=== PATIENT | male | born 1945 | race Caucasian/White ===

== ENCOUNTER → 2016-03-07 | Outpatient (CLI) | payer BC ==
[~2016-03-07] MED LIST: GABA-113 PO; GLC500 PO; HYDR12.55 PO; LISI40TA PO; SIMV40TA2 PO; SYMIN160 INH
--- NOTE | 2016-03-08 08:00 | PAP/PSG TECHNICIAN REPORT ---
[facility] Digital Marketing Lead Polysomnogram Report Study name: None Report date: 03/08/2016 Study date: 03/07/2016 Referring Physician: Yan Lopez Pulmonary Name: YAN SARMIENTO Interpreting Physician: Sukh Dent D.O. Date of : 1945 Digital Marketing Lead: Ashley Mcnair, PSGT. Sex: Male Age: 70 StudyType: PSG Weight: 180 lbs Height: 70 years, Height 5' 10" BMI: 25.82 Medications: HCTZ 5 MG, METFORMIN 500 MG, LISINOPRIL 40 MG, [id number], VENTOLIN HFA. Patient History 70R. OLD MALE IN ROOM 7 PRESENTS TO THE SLEEP LAB FOR A DIAGNOSTIC SLEEP STUDY. PT. STATES THAT HE WAKES OFTEN DURING THE NIGHT, HE ALSO USES THE RESTROOM 2-3 TIMES PER: NIGHT. HE STATES THAT HE SNORES AT TIMES. NAPS DURING THE DAY OFTEN. Parameters Monitored NPSG: E1-M2, E2-M1, Fp1-M2, Fp2-M1, F3-M2, F4-M2, F4-M1, C3-M2, C4-M2, C4-M1, O1-M2, O2-M2, O2-M1, T3-M2, T4-M1, P3-M2, P4-M1, CHIN1, CHIN2, HR, EKG, Legs, PFLOW, SNOR, FLOW, CFLOW, Tidal Volume, THOR, ABDO, SpO2, PLTH, CPRESS, ETCO2 Wave, ETCO2, pH Sleep Architecture Sleep Stages Time at Lights Off 10:15:14 PM STAGES Time (min.) TST (%) Time at Lights On 4:45:14 AM Wake 124.5 -- Total Recording Time (TRT) 391.00 min. N1 8.0 3 Total Sleep Period (TSP) 343.5 min. N2 167.0 63 Total Sleep Time (TST) 265.5min. N3 0.0 0 Awake Time 125.5 min. REM 90.5 34 Wake after Sleep Onset 101.0 min. Sleep Efficiency (SE) 68 % Sleep Onset Latency (JOHN) 23.5 min. Number of Stage 1 Shifts None Awakenings 6 Stage Changes 28 Number of REM periods 6 REM 90.5 34 REM Latency 52.0 min. NREM 175.0 66 Body Position Analysis Supine Right Left Side Prone Vertical Total Sleep Time (min.) 105.7 156.3 42.4 198.68 0.0 0.0 Total Sleep Time (%) 25% 59% 16% 75 0% N/A% Total Sleep Time REM (min.) 9.5 42.5 38.5 None 0.0 0.0 Total Sleep Time NREM (min.) 57.3 113.8 3.9 None 0.0 0.0 Intermittent Wake (min.) 38.9 13.1 72.5 None 0.0 0.0 Total Sleep Period (%) 20% None None None None None Arousals Myoclonus (PLM) * Events Count Index Events Count Index Spontaneous 27 6 Events Awake (PLMW) 4 1.9 Respiratory 2 0.5 Events Asleep w/ Arousal (PLMA) 6 1.4 PLM 6 1 Events Asleep w/o Arousal (PLMS) 160 36.2 Snoring 2 0 Total Asleep 166 37.5 Total 37 8 Total 170 26 Respiratory Analysis * CA OA MA CH H RERA Total Count 0 12 0 0 51 0 63 Index 0.0 2.7 0.0 0 11.5 0 14.2 Mean Duration 0.0 22.7 0.0 0.00 23.5 0.0 23.3 Longest Duration 0.0 46.1 0.0 0.00 0.0 0.0 55.8 Respiratory Event Summary Total Supine ~Supine Right Left Prone REM NREM Apneas Count 12 11 1 0 1 N/A 5 7 Index 2.7 10 0 0.0 1.4 N/A 3 2 Hypopneas (4% Desat) Count 51 38 13 10 3 N/A 8 43 Index 11.5 34.1 4 3.8 4.2 N/A 5.3 14.7 Apneas & All Hypopneas Count 63 49 14 10 4 N/A 13 50 Index 14.2 44 4 4 6 N/A 8.6 17.1 Respiratory Events (Dietary Cook+All Hyp+RERA) Count 63 49 14 10 4 N/A 13 50 Index 14.2 44 4 3.8 5.7 N/A 8.6 17.1 Respiratory Related Arousal Count 2 49 0 0 0 N/A 0 2 Index 0.5 2 0 0 0 N/A 0 1 Snoring Analysis Supine Right Left Prone REM NREM Total Snore duration 4.8 min Snores count 91 90 18 N/A 58 141 199 Snore mean duration 1.5 Sec Snores index 82 35 25 N/A 38.5 48.3 45.0 TST with snoring (%) 1.8% Desaturation Event Summary: Minimum %SpO2 Event Count Mean/Min/Max Duration(sec.) Desaturation Index % Time In Bed > 90 33 31.8 / 12.8 / 55.0 38.2 13.6 86 - 90 49 32.6 / 9.5 / 60.0 9.8 78.9 81 - 85 3 22.4 / 11.0 / 38.3 7.8 6.0 76 - 80 0 N/A 0.0 1.0 71 - 75 0 N/A 0.0 0.4 66 - 70 0 N/A 0.0 0.0 61 - 65 0 N/A 0.0 0.0 56 - 60 0 N/A 0.0 0.0 51 - 55 0 N/A 0.0 0.0 < 50 0 N/A 0.0 0.0 Total REM NREM Awake <50% 0.0 min. 0.0 min. 0.0 min. 0.0 min. 51 - 60% 0.0 min. 0.0 min. 0.0 min. 0.0 min. 61 - 70% 0.0 min. 0.0 min. 0.0 min. 0.0 min. 71 - 80% 5.5 min. 1.0 min. 4.5 min. 0.0 min. 81 - 90% 323.8 min. 74.7 min. 156.3 min. 92.7 min. 91 - 100% 51.9 min. 14.8 min. 14.1 min. 23.1 min. Average 88 89 88 89 Minimum SpO2 70 72 70 81 Desaturation Event Index 9.8 9.3 17.8 0.0 # Desat. Events below 89% 61 12 49 0 Time(%) with Saturation below 89% 52.3 10.7 30.2 11.4 Time(min.) with Saturation below 89% 199.5 40.9 115.0 43.6 Time (mins) REM (mins) NREM (mins) % of TST SpO2 Below 90% 64 13 N51 77.8 SpO2 Below 88% 32 0 0 33 Heart Rate Analysis Min (bpm) Max (bpm) Average (bpm) Awake 54 188 67 NREM 56 83 65 REM 57 92 66 Overall 56 92 65 Supplemental O2 Values Minimum O2 level: None Value Start Time End Time Digital Marketing Lead Comments PSG Study Mr. Sarmiento slept in the right, left, and supine positions. No cardiac arrhythmia or PLM's noted. No bruxism noted. Snoring was noted and scored as a 3 on a scale of 1 through 5. (0=no snoring, 5=snoring loud enough to be heard through a closed door or down the je[address] way) Mr. Sarmiento awoke to use the restroom zero times during the night. Mr. Sarmiento stated, I did sleep as well as I do when I am in my own bed. The final report will be interpreted and signed by a sleep physician. The completed physician report will then be placed in the patient medical record. Pt. was somewhat restless throughout the test.He did snore and display respiratory events, with low oxygen saturations. Pt. woke around 3 am and was awake tossing and turning when I went into the room to see if he needed anything he said that his lower back was hurting him. Test ended at 4:34 am. Therapy (cm H2O) 0 TIB (min.) 390.0 TST (min.) 265.5 Sleep Onset (min.) 23.5 REM Onset From Sleep (min.) 52.0 Sleep Efficiency % 68 Wakefulness (%) 32 Wakefulness (min.) 125.5 NREM 1 (%) 3 NREM 1 (min.) 8.0 NREM 2 (%) 63 NREM 2 (min.) 167.0 NREM 3 (%) 0 NREM 3 (min.) 0.0 REM (%) 34 REM (min.) 90.5 # Arousals 37 Arousal Index 8 # Snore 199 Snore Index 45.0 AHI 14.2 AHI Supine 44 AHI Non-Supine 4 NREM AHI 17.1 REM AHI 8.6 RDI 14.2 # Obstructive Apnea 12 # Central Apnea 0 # Mixed Apnea 0 # Hypopneas 51 RERAs 0 Total Respiratory Events 63 Time Below SpO2 89% (min.) 155.9 Mean NREM SpO2 (%) 88 Mean REM SpO2 (%) 89 Mean Sleep SpO2 (%) 88 Min NREM SpO2 (%) 70 Min REM SpO2 (%) 72 Position Supine (min.) 105.7 Position Non-supine (min.) 198.7 LM Index Sleep 37.5 LM Index NREM 41.5 LM Index REM 29.8 Mean Heart Rate (bpm) 65 Min Heart Rate (bpm) 56
--- NOTE | 2016-03-09 16:29 | POLYSOMNOGRAPH REPORT ---
DATE OF PROCEDURE: 03/07/2016. REFERRING PHYSICIAN: Dr. Ryan Lopez and Dr. Jonny Leigh CLINICAL DATA: The patient is a 70-year-old male with a BMI of 25.82. He is referred for an in-lab diagnostic sleep study. He has complaints of disturbed nocturnal sleep, snoring and excessive daytime somnolence. SLEEP ARCHITECTURE: The total sleep period was 343.5 minutes. Total sleep time was 265.5 minutes. The sleep latency was mildly prolonged at 23.5 minutes. Sleep efficiency was moderately decreased to 68%. Wake after sleep onset was increased to 101 minutes. REM latency was 52 minutes. Sleep consisted of stage N1 3%, stage N2 63%, stage N3 0%, stage REM 34%. AROUSAL DATA: The patient had a total of 37 arousals including 27 spontaneous arousals, 2 respiratory arousals, 6 PLM arousals and 2 snoring arousals. The arousal index was 8. PLM DATA: The patient had a total of 166 periodic limb movements for a PLM index of 37.5 per hour. There were only 6 PLM with arousals for an index of only 1.4. EKG: The underlying cardiac rhythm was normal sinus. There were rare PVCs. The cardiac rates ranged from 54 up to 92 beats per minute. RESPIRATORY DATA: The patient had a total of 63 respiratory events including 12 obstructive apneas and 51 hypopneas. The apnea hypopnea index was elevated at 14.2 events per hour. This would be in the mild to moderate range. OXIMETRY DATA: The patient did have severe hypoxia at times. The minimum saturation was 70%. There was a total of 199.5 minutes with saturations less than 89%. DOOR ASSEMBLER COMMENTS AND TREATMENT SUMMARY: The patient slept in the right, left, and supine positions. No bruxism was noted. Snoring was noted and scored as a 3 on a scale of 1 through 5. The patient was restless throughout the test. There was a fairly long episode of wake in the last one-third of the study. IMPRESSIONS: 1. Obstructive sleep apnea -- mild to moderate. 2. Periodic limb movement disorder. 3. Hypoxia. COMMENTS: The patient has sleep apnea which is in the mild to moderate range. He did have significant hypoxia throughout much of the night. The most severe hypoxia occurred when the patient was in the supine position. The patient has comorbidities including hypertension, diabetes and asthma. RECOMMENDATIONS: 1. It is advised that the patient be given a trial of nasal CPAP. This could best be done by having him return for an in-lab CPAP titration study. The alternative would be treatment with auto CPAP. 2. No treatment is necessary for the underlying limb movement disorder. The sleep disorder breathing should be treated first. There were few arousals associated with the leg movements. 3. The patient should be advised to avoid sleeping in the supine position. He clearly had worsening events and hypoxia when he was supine. 4. He should be advised of the appropriate principles of sleep hygiene including having a regular sleep-wake schedule and having approximately 7.5 hours of sleep per night.
== END | disposition home or self-care (01) ==
LOC: C.NEUR 21:00
PROVIDERS: ATTEND Internal Medicine Pulmonary Disease
DX: G47.33 Obstructive sleep apnea (adult) (pediatric) (principal)

== ENCOUNTER → 2016-03-15 | Outpatient (CLI) | payer BC ==
--- NOTE | 2016-03-16 05:27 | PAP/PSG TECHNICIAN REPORT ---
[facility] Ribbon Blockmaker Polysomnogram Report Study name: None Report date: 03/16/2016 Study date: 03/15/2016 Referring Physician: Yan Lopez Pulmonary Name: YAN SARMIENTO Interpreting Physician: Sukh Dent D.O. Date of : 1945 Ribbon Blockmaker: Terri Rob RPSMORENO. Sex: Male Age: 70 StudyType: PSG PAP Weight: 180 lbs Height: 70 years, Height 5' 10" Neck Circum: 16.5inches BMI: 25.82 Medications: HCTZ 5mg, Metformin 500mg, Lisinopril 40mg, Symbicort 160-45mcg/act, Ventolin HFA Patient History Study started on room air with 4cwp cpap in room #6. 70 yr old male here tonight for a new titration study. He had a diagnostic psg done here on 03/07/16 that had an AHI of 14.2. His neck circ=16.5inches. Parameters Monitored NPSG: E1-M2, E2-M1, Fp1-M2, Fp2-M1, F3-M2, F4-M2, F4-M1, C3-M2, C4-M2, C4-M1, O1-M2, O2-M2, O2-M1, T3-M2, T4-M1, P3-M2, P4-M1, CHIN1, CHIN2, HR, EKG, Legs, PFLOW, SNOR, FLOW, CFLOW, Tidal Volume, THOR, ABDO, SpO2, PLTH, CPRESS, ETCO2 Wave, ETCO2, pH Sleep Architecture Sleep Stages Time at Lights Off 10:09:33 PM STAGES Time (min.) TST (%) Time at Lights On 5:20:33 AM Wake 200.0 -- Total Recording Time (TRT) 431.00 min. N1 42.0 18 Total Sleep Period (TSP) 392.0 min. N2 148.5 64 Total Sleep Time (TST) 231.0min. N3 29.0 13 Awake Time 200.0 min. REM 11.5 5 Wake after Sleep Onset 198.0 min. Sleep Efficiency (SE) 54 % Sleep Onset Latency (JOHN) 2.0 min. Number of Stage 1 Shifts None Awakenings 40 Stage Changes 133 Number of REM periods 4 REM 11.5 5 REM Latency 61.5 min. NREM 219.5 95 Body Position Analysis Supine Right Left Side Prone Vertical Total Sleep Time (min.) 227.0 47.4 65.0 112.34 0.0 0.0 Total Sleep Time (%) 51% 21% 28% 49 0% N/A% Total Sleep Time REM (min.) 0.5 11.0 0.0 None 0.0 0.0 Total Sleep Time NREM (min.) 118.2 36.4 65.0 None 0.0 0.0 Intermittent Wake (min.) 108.4 21.1 70.5 None 0.0 0.0 Total Sleep Period (%) 57% None None None None None Arousals Myoclonus (PLM) * Events Count Index Events Count Index Spontaneous 11 3 Events Awake (PLMW) 186 55.8 Respiratory 27 10.1 Events Asleep w/ Arousal (PLMA) 10 2.6 PLM 8 3 Events Asleep w/o Arousal (PLMS) 34 8.8 Snoring 1 0 Total Asleep 44 11.4 Total 47 12 Total 230 32 Respiratory Analysis * CA OA MA CH H RERA Total Count 1 14 0 0 67 0 82 Index 0.3 3.6 0.0 0 17.4 0 21.3 Mean Duration 0.0 27.3 0.0 0.00 34.6 0.0 32.9 Longest Duration 0.0 69.0 0.0 0.00 0.0 0.0 92.1 Respiratory Event Summary Total Supine ~Supine Right Left Prone REM NREM Apneas Count 15 12 3 1 2 N/A 1 14 Index 3.9 6 2 1.3 1.8 N/A 5 4 Hypopneas (4% Desat) Count 67 48 19 16 3 N/A 4 63 Index 17.4 24.3 10 20.3 2.8 N/A 20.9 17.2 Apneas & All Hypopneas Count 82 60 22 17 5 N/A 5 77 Index 21.3 30 12 22 5 N/A 26.1 21.0 Respiratory Events (Conveyor Loader+All Hyp+RERA) Count 82 60 22 17 5 N/A 5 77 Index 21.3 30 12 21.5 4.6 N/A 26.1 21.0 Respiratory Related Arousal Count 27 60 6 2 4 N/A 1 38 Index 10.1 17 3 3 4 N/A 5 10 Snoring Analysis Supine Right Left Prone REM NREM Total Snore duration 3.4 min Snores count 108 53 5 N/A 17 149 166 Snore mean duration 1.2 Sec Snores index 55 67 5 N/A 88.7 40.7 43.1 TST with snoring (%) 1.5% Desaturation Event Summary: Minimum %SpO2 Event Count Mean/Min/Max Duration(sec.) Desaturation Index % Time In Bed > 90 111 34.9 / 10.0 / 60.0 19.8 84.6 86 - 90 13 21.8 / 0.0 / 42.8 13.7 14.4 81 - 85 1 7.3 / 7.3 / 7.3 17.0 0.9 76 - 80 0 N/A 0.0 0.1 71 - 75 0 N/A 0.0 0.0 66 - 70 0 N/A 0.0 0.0 61 - 65 0 N/A 0.0 0.0 56 - 60 0 N/A 0.0 0.0 51 - 55 0 N/A 0.0 0.0 < 50 0 N/A 0.0 0.0 Total REM NREM Awake <50% 0.0 min. 0.0 min. 0.0 min. 0.0 min. 51 - 60% 0.0 min. 0.0 min. 0.0 min. 0.0 min. 61 - 70% 0.0 min. 0.0 min. 0.0 min. 0.0 min. 71 - 80% 0.6 min. 0.5 min. 0.0 min. 0.1 min. 81 - 90% 60.6 min. 3.7 min. 38.2 min. 18.8 min. 91 - 100% 335.9 min. 7.3 min. 179.8 min. 148.8 min. Average 93 91 92 93 Minimum SpO2 71 78 81 71 Desaturation Event Index 15.9 15.7 23.2 8.7 # Desat. Events below 89% 50 1 40 9 Time(%) with Saturation below 89% 5.3 0.6 3.6 1.1 Time(min.) with Saturation below 89% 21.1 2.2 14.5 4.5 Time (mins) REM (mins) NREM (mins) % of TST SpO2 Below 90% 72 2 N70 11.7 SpO2 Below 88% 22 0 0 4 Heart Rate Analysis Min (bpm) Max (bpm) Average (bpm) Awake 30 167 70 NREM 57 81 65 REM 60 75 65 Overall 57 81 65 Supplemental O2 Values Minimum O2 level: None Value Start Time End Time Ribbon Blockmaker Comments Mr. Sarmeinto slept in the right, left and supine positions. No cardiac arrhythmia noted. Some leg movements noted. No bruxism noted. CPAP was initiated at +4 CMH2O and up-titrated to a level of +18EXW5M which did not eliminate all respiratory events. A small AirFit F20 full face mask by [employer] was used during titration (he tried three other full face masks that did not work for him). He awoke to use the restroom once during the night and to stretch his legs. He stated that he slept about the same as when at home. He was having pain in his back and his left leg and foot that woke him up and he could not get comfortable. He slept poorly but tolerated the treatment well. He did awaken early and ask to end the study because of right shoulder pain. The final report will be interpreted and signed by a sleep physician. The completed physician report will then be placed in the patient medical record. Therapy Event: Therapy (cm H20) 4 5 6 7 8 10 11 12 13 15 Total Time at Pressure (min.) 12.8 8.1 23.4 25.0 91.0 69.2 61.2 16.9 7.2 116.2 TST at Pressure (min.) 10.5 7.9 7.4 25.0 79.5 25.2 19.7 14.9 7.2 33.7 # Periods 1 1 1 1 1 1 1 1 1 1 Sleep Onset (min.) 2.0 0.2 0.0 0.0 0.0 0.0 0.0 0.0 0.0 0.0 REM Onset (min.) N/A N/A N/A 19.2 0.0 N/A N/A N/A 3.0 N/A Sleep Efficiency % 82 97 31 100 87 36 32 88 100 29 Wakefulness (%) 17.9 2.6 68.3 0.0 12.6 63.6 67.9 11.9 0.0 71.0 Wakefulness (min.) 2.3 0.2 16.0 0.0 11.5 44.0 41.5 2.0 0.0 82.5 NREM 1 (%) 43.0 12.4 22.6 2.8 5.3 14.0 9.8 9.0 20.5 5.2 NREM 1 (min.) 5.5 1.0 5.3 0.7 4.8 9.7 6.0 1.5 1.5 6.0 NREM 2 (%) 39.1 85.0 9.0 78.0 43.4 22.4 22.3 79.1 72.6 23.9 NREM 2 (min.) 5.0 6.9 2.1 19.5 39.5 15.5 13.7 13.3 5.3 27.7 NREM 3 (%) 0.0 0.0 0.0 0.0 31.9 0.0 0.0 0.0 0.0 0.0 NREM 3 (min.) 0.0 0.0 0.0 0.0 29.0 0.0 0.0 0.0 0.0 0.0 REM (%) 0.0 0.0 0.0 19.2 6.8 0.0 0.0 0.0 6.9 0.0 REM (min.) 0.0 0.0 0.0 4.8 6.2 0.0 0.0 0.0 0.5 0.0 # Arousals 3 5 4 1 8 14 7 2 1 2 Arousal Index 17.1 38.1 32.4 2.4 6.0 33.3 21.4 8.1 8.3 3.6 # Snore 29 13 0 44 15 18 9 31 1 6 Snore Index 165.7 99.0 0.0 105.7 11.3 42.8 27.5 125.2 8.3 10.7 AHI 40.0 53.3 64.7 28.8 6.8 33.3 15.3 36.3 33.2 12.4 AHI Supine 40.0 53.3 76.5 N/A 43.4 38.7 20.5 36.3 33.2 12.6 AHI Non-Supine N/A N/A 61.6 28.8 3.3 0.0 0.0 N/A N/A 0.0 NREM AHI 40.0 53.3 64.7 26.7 5.7 33.3 15.3 36.3 35.6 12.4 REM AHI N/A N/A N/A 37.6 19.3 N/A N/A N/A 0.0 N/A RDI 40.0 53.3 64.7 28.8 6.8 33.3 15.3 36.3 33.2 12.4 # Obstructive 0 0 2 1 3 3 1 2 2 0 # Central Ap 0 0 0 0 0 0 0 0 0 1 # Mixed 0 0 0 0 0 0 0 0 0 0 # Hypopneas 7 7 6 11 6 11 4 7 2 6 RERAS 0 0 0 0 0 0 0 0 0 0 Total Respiratory Events 7 7 8 12 9 14 5 9 4 7 Time Below SpO2 89.00% (min.) 1.7 2.2 0.0 3.5 0.7 2.6 3.0 2.8 0.0 0.0 Mean NREM SpO2 (%) 91 91 93 92 94 92 91 91 93 92 Mean REM SpO2 (%) N/A N/A N/A 90 92 N/A N/A N/A 93 N/A Mean Sleep SpO2 (%) 91 91 93 91 93 92 91 91 93 92 Min NREM SpO2 (%) 81 82 84 84 91 84 84 82 89 89 Min REM SpO2 (%) N/A N/A N/A 78 85 N/A N/A N/A 92 N/A Position Supine (min.) 10.5 7.9 1.6 0.0 6.9 21.7 14.7 14.9 7.2 33.3 Position Non-supine (min.) 0.0 0.0 5.8 25.0 72.6 3.5 5.0 0.0 0.0 0.4 LM Index Sleep 0.0 22.8 24.3 0.0 9.8 14.3 15.3 12.1 8.3 17.8 LM Index NREM 0.0 22.8 24.3 0.0 10.6 14.3 15.3 12.1 8.9 17.8 LM Index REM N/A N/A N/A 0.0 0.0 N/A N/A N/A 0.0 N/A Mean Heart Rate (bpm) 64 65 64 63 64 64 65 66 68 67 Min Heart Rate (bpm) 61 60 59 57 59 59 61 62 62 63
--- NOTE | 2016-03-17 08:17 | POLYSOMNOGRAPH REPORT ---
CLINICAL DATA: The patient is a 70-year-old male. His history is that of snoring, and disturbed nocturnal sleep, and excessive daytime somnolence. A diagnostic sleep study was done 03/07/2016 showing obstructive sleep apnea with an apnea hypopnea index of 14.2. He is referred back to the sleep disorder center for a trial of nasal CPAP. SLEEP ARCHITECTURE: Total sleep period was 392.0 minutes. Total sleep time was 231.0 minutes. Sleep efficiency was significantly reduced to 54%. Wake after sleep onset was elevated at 198.0 minutes. The sleep latency was short at 2.0 minutes periods. The REM latency was normal at 61.5 minutes. Sleep consisted of stage N1 18%, stage N2 64%, stage N3 13%, and REM sleep, 5%. AROUSAL DATA: The patient had a total of 47 arousals including 11 spontaneous arousals, 27 respiratory arousals, 8 PLM arousals, and 1 snoring arousal. The arousal index was 12. PERIODIC LIMB MOVEMENTS DATA: The patient had a total of 44 periodic limb movements of sleep for a PLM index of 11.4 events per hour. There were 10 limb movements with arousals for a PLM arousal index of 2.6. EKG: The underlying cardiac rhythm was normal sinus. The cardiac rates ranged from 57-81 beats per minute. There were very occasional PACs noted. RESPIRATORY DATA: The patient's respiratory events were treated with nasal CPAP. Treatment was started at 4 cm. It was titrated up to a maximum of 15 cm. For the entire night, he had a total of 15 apneas and 67 hypopneas. The apnea hypopnea index was elevated at 21.3 events per hour. At the final pressure of 15 cm, the patient had a total time of 116.2 minutes with a total sleep time of only 33.7. Thus, the sleep efficiency at the final pressure only 29%. At the final pressure, he had 1 central apnea and 6 hypopneas. The apnea hypopnea index was 12.4 at the final pressure. OXIMETRY DATA: The patient's oxygen saturations had a casey of 71%. This likely was artifactual as it occurred during wake. He had a total of 22 minutes with saturations below 88%. Most of this occurred during the early part of the night. GAS PROVER COMMENTS: The patient slept in the right, left, and supine positions. Some leg movements were noted. A small AirFit F20 full face mask by [employer] was used during the titration. He tried 3 other full face masks that did not work for him. He awoke to use the bathroom once during the night and to stretch his legs. He stated that he slept about same as when at home. He was having pain in his back and his left leg and foot that woke him up and he could not get comfortable. He also complained of right shoulder pain. IMPRESSION: Obstructive sleep apnea -- treated with nasal CPAP at 15 cm. COMMENTS: The patient had somewhat disturbed sleep, particularly in the final one-half of the night. He seemed to tolerate CPAP well. He persisted with some degree of sleep apnea. Mainly these were hypopneas. His sleep was disturbed by significant amounts of pain. At the final pressure of 15 cm, he had some residual events. Thus, it would be advised that his CPAP be set at a slightly higher pressure such as 16 cm in hopes of resolving the remaining nocturnal respiratory events. RECOMMENDATIONS: 1. It is suggested that the patient be started on nasal CPAP at 16 cm. 2. It is advised that he be ordered an AirFit F20 full face mask made by [employer]. 3. Humidity is advised in to the CPAP. 4. The patient should have a followup between day 31 and day 90 after receiving his CPAP. 5. It is suggested that he avoid sleeping in the supine position. MTDD
== END | disposition home or self-care (01) ==
LOC: C.NEUR 20:00
PROVIDERS: ATTEND Internal Medicine Pulmonary Disease
DX: G47.33 Obstructive sleep apnea (adult) (pediatric) (principal)

== ENCOUNTER → 2016-05-18 | Outpatient (CLI) | payer BC | END | disposition home or self-care (01) | LOC: C.RDSM 09:30 | PROVIDERS: ATTEND Orthopaedic Surgery Sports Medicine | DX: M79.672 Pain in left foot (principal) ==

== ENCOUNTER → 2016-07-28 | Day surgery (SDC) | payer BC ==
[2016-07-12 10:30] VITALS: Ht 177.8 cm; Wt 81.8 kg
[~2016-07-28] VITALS: Ht 177.8 cm; Wt 81.8 kg
[~2016-07-28] MED LIST changes: +IOPAMIDOL INJ 61% 15 ML VIAL ONE; +LIDOCAINE HCL 1% MPF 5 ML VIAL ONE; +SODIUM CHLORIDE 0.9% INJ 10 ML VIAL ONE
--- NOTE | 2016-07-28 13:04 | History & Physical Bridge - SC ---
H&P Re-Evaluation Bridge Note: I have examined the patient, reviewed the History & Physical and in the interval since the performance of the History & Physical I have noted the following changes of clinical significance: No changes noted
[2016-07-28 13:28] VITALS: TEMP 36.3
--- NOTE | 2016-07-28 13:34 | Discharge Instructions ---
Discharge Instructions Date of Service Jul 28, 2016. Visit Reason for Visit: Lumbar Radiculopathy Discharge Discharge Diagnosis / Problem: left leg pain Discharge Goals Goal(s): Decrease discomfort, Improve function Activity Recommendations Activity Limitations: resume your previous activity Anesthesia . Post Anesthesia Instructions: If you have had General Anesthesia or IV Sedation: * Do not drive today. * Resume driving when surgeon permits. * Do not make important decisions or sign legal documents today. * Call surgeon for: 1. Temperature elevations greater than 101 degrees F. 2. Uncontrollable pain. 3. Excessive bleeding. 4. Persistent nausea and vomiting. 5. Medication intolerance (nausea, vomiting or rash). * For nausea and vomiting use only clear liquids such as: tea, soda, bouillon until nausea subsides, then gradually increase diet as tolerated. * If you have any concerns or questions, call your surgeon's office. If physician is unavailable and it is an emergency, call 911 or go to the nearest emergency room. . Diet Recommendations Recommended Home Diet: resume previous diet Procedures Procedures Performed: Lumbar Epidural Steroid Injection Pending Studies Studies pending at discharge: no Medical Emergencies . Who to Call and When: Medical Emergencies: If at any time you feel your situation is an emergency, please call 911 immediately. . Non-Emergent Contact Non-Emergency issues call your: Specialist . . "Provider Documentation" section prepared by Michael Horn. .
[2016-07-28 13:40] VITALS: BP 159/85; PULSE 68; O2SAT 98
--- NOTE | 2016-07-28 14:08 | OPERATIVE REPORT ---
DATE OF OPERATION: 07/28/2016 PREOPERATIVE DIAGNOSIS: Left lower extremity radiculopathy secondary to L5-S1 foraminal stenosis. POSTOPERATIVE DIAGNOSIS: Same. PROCEDURE: Left paramedian L5-S1 intralaminar epidural steroid injection under fluoroscopic guidance. INDICATIONS: The patient is a 71-year-old white male who presents today with complaints of leg pain. EMG nerve conduction study was done to evaluate his complaints, which revealed radiculopathy down the left leg and not tarsal tunnel syndrome. He presents today for an epidural injection to provide him with relief as conservative measures have not helped. PHYSICAL EXAMINATION: GENERAL: Pleasant male seated comfortably in no apparent distress. MUSCULOSKELETAL: Lumbar paraspinal muscles were palpated and noted to be nontender. He had decreased sensation in the left sural, superficial peroneal and the deep peroneal nerves. No focal weakness. CONSENT: Verbal and written consent was obtained from the patient. Risks and benefits were reviewed. Risks include but are not limited to epidural abscess, epidural hematoma, allergic reaction, dural puncture. The patient wishes to proceed. PROCEDURE IN DETAIL: The patient was taken back to the special procedures room of the [facility] where he was maintained in a prone position. Backside was cleansed with Betadine x3 and a dry sterile dressing was applied. Fluoroscope was used to identify the L5-S1 intralaminar space and overlying skin on the left side was anesthetized with 4 mL of lidocaine 1% 25 gauge 1.5-inch needle. A 22-gauge 3-1/2 inch Tuohy needle was then placed and advanced fluoroscopically under lateral under lateral fluoroscopic view. Loss of resistance was noted at a depth of 6 cm. Isovue-300 contrast 0.5 mL was injected in, which showed it to be in the soft tissues. He then underwent additional advancement of the epidural needle with a true loss of resistance at a depth of just under 8.5 cm. Isovue-300 contrast 1 mL was injected in, which demonstrated epidural uptake pattern. He then underwent injection after negative aspiration of 40 mg of Depo-Medrol and 4 mL of preservative free sodium chloride. Injection was well tolerated and reproduced a familiar radicular sensation down the left leg which was transient. DISPOSITION: 1. The patient is taken out into the discharge recovery area where he will be discharged home once discharge criteria have been met. 2. Follow up in the [facility] office in 2-4 weeks. I attest to the content of the Intraoperative Record and any orders documented therein. Any exception s are noted below.
== END | disposition home or self-care (01) ==
LOC: X.SURG 12:01
PROVIDERS: ATTEND Physical Medicine & Rehabilitation
DX: M48.07 Spinal stenosis, lumbosacral region (principal)

== ENCOUNTER → 2016-11-12 | Outpatient (CLI) | payer BC ==
[~2016-11-12] MED LIST changes: +GADAVIST IV PRN; -IOPAMIDOL INJ 61% 15 ML VIAL ONE; -LIDOCAINE HCL 1% MPF 5 ML VIAL ONE; -SODIUM CHLORIDE 0.9% INJ 10 ML VIAL ONE
--- NOTE | 2016-11-12 12:21 | DIAGNOSTIC IMAGING REPORT ---
MRI OF THE LEFT FOREFOOT COMBO CLINICAL HISTORY: Tarsal tunnel syndrome. Pain and numbness in the toes. COMPARISON STUDY: Radiographs of the left foot dated 05/18/2016 TECHNIQUE: MRI of the left forefoot is performed utilizing various T1 and T2-weighted sequences in the axial, sagittal, and coronal planes. Contrast-enhanced sequences were acquired following the IV administration of 8.5 cc of Gadavist. The examination is degraded by motion artifact. FINDINGS: Normal marrow signal intensity is preserved throughout the visualized bony structures. There is no MRI evidence of fracture. Mild arthritic change is seen at the first metatarsophalangeal joint. There is no MRI evidence of Lisfranc injury. The regional musculature is normal in bulk and signal intensity. No ganglion cyst or enhancing mass lesion is identified. The visualized flexor and extensor tendons appear intact. IMPRESSION: 1. No bony abnormality is identified. 2. There is no evidence of a space-occupying lesion or enhancing mass. Dictated: 11/12/2016 12:07 PM Transcribed: 11/12/2016 12:21 PM [facility] Electronically signed by: Patricio Patel M.D. 11/12/2016 12:32 PM Dictated Date/Time: 11/12/2016 12:07 PM
== END | disposition home or self-care (01) ==
LOC: C.MRI 09:13
PROVIDERS: ATTEND Orthopaedic Surgery Sports Medicine
DX: G57.52 Tarsal tunnel syndrome, left lower limb (principal)

== ENCOUNTER → 2016-11-15 | Outpatient (CLI) | payer BC ==
--- NOTE | 2016-11-15 12:56 | DIAGNOSTIC IMAGING REPORT ---
MRI LEFT ANKLE COMBO CLINICAL HISTORY: Tarsal tunnel syndrome. COMPARISON STUDY: Radiographs of left foot dated 05/18/2016 TECHNIQUE: MRI of the left ankle is performed using various T1 and T2-weighted sequences in the axial, sagittal, coronal planes. Contrast enhanced images are acquired following the IV administration of 8.5 cc of Gadavist. FINDINGS: Normal marrow signal intensity is preserved throughout the visualized bony structures. There is no evidence of osteochondral defect in the talar dome. Normal fat is maintained within the sinus tarsi. The plantar fascia is normal as visualized. The anterior talofibular ligament appears intact. The Achilles tendon is intact as visualized. No joint effusion is seen. The anterior, posterior, and peroneal tendons appear intact. The deltoid ligament appears intact. No space-occupying lesion or enhancing mass is identified. No accessory musculature is seen posterior to the ankle. There is mild generalized atrophy of the regional musculature. No intramuscular edema is identified. IMPRESSION: 1. No space-occupying lesion or enhancing mass is identified. 2. No acute bony abnormality is seen. 3. The regional tendons appear intact. Electronically signed by: Patricio Patel M.D. 11/15/2016 12:55 PM Dictated Date/Time: 11/15/2016 12:45 PM
== END | disposition home or self-care (01) ==
LOC: C.MRI 10:38
PROVIDERS: ATTEND Orthopaedic Surgery Sports Medicine
DX: G57.52 Tarsal tunnel syndrome, left lower limb (principal)

== ENCOUNTER 2016-12-26 08:24 | Emergency (ER) | payer BC ==
[~2016-12-26] VITALS: Ht 177.8 cm; Wt 84.0 kg
[~2016-12-26 08:24] MED LIST changes: -GADAVIST IV PRN
[2016-12-26 08:29] VITALS: TEMP 36.6; Ht 177.8 cm; Wt 84.0 kg
[2016-12-26] MEDS ORDERED: GLC500 PO (08:53)
--- NOTE | 2016-12-26 09:11 | EMERGENCY ROOM VISIT NOTE ---
History Report prepared by Flores: River Cevallos Under the Supervision of: Dr. Tracee Hewitt D.O. First contact with patient: 08:36 Chief Complaint: CONSTIPATION Stated Complaint: NAUSEA,FEVERISH,PT HAD SURGERY ON TUESDAY Nursing Triage Summary: tarsal tunnel surgery at [facility] on tuesday. this AM patient c/o nausea. patient states his last BM was on tuesday. patient c/o feeling gassy, bloated and nauseated. patient staets he has been taking pain medication last pain medication was at 0400 today. patient states he has not taken any stool softners until this AM. patient took 1 colace this AM History of Present Illness The patient is a 71 year old male who presents to the Emergency Room with complaints of persistent constipation that started 2 days ago. He says that he had Tarsal tunnel surgery at [facility] 2 days ago, and is on OxyContin for that. The patient states that he was supposed to be on a stool softener after the surgery, but was not on it. He notes that he did take 1 Colace this morning. He says that he usually has a daily bowel movement, but has not had one for 2 days. The patient notes that he has had intermittent nausea, sweats and chills, and feelings of being feverish, but did not measure his temperature. He adds that he has had some low back pain, which sometimes occurs before needing to have a bowel movement. He denies any other pain other than his foot, including abdominal pain. He notes no history of kidney problems. Source of History: patient, family Onset: 2 days ago Position: other (global - constipation) Symptom Intensity: has not had bowel movement in 2 days Quality: other (on pain medication after surgery) Timing: other (persistent) Associated Symptoms: + chills, + diaphoresis, + nausea, + back pain (low), No abdominal pain Note: Associated symptoms: Denies any pain other than foot pain where had surgery. Review of Systems See HPI for pertinent positives & negatives. A total of 10 systems reviewed and were otherwise negative. Past Medical & Surgical Medical Problems: (1) Diabetes (2) HTN (hypertension) Family History Family history omitted secondary to patient's advanced age. Social History Smoking Status: Never Smoker Alcohol Use: none Marital Status: Occupation Status: retired Current/Historical Medications Scheduled Hydrochlorothiazide (Hydrochlorothiazide), 12.5 MG PO QAM Lisinopril (Zestril), 40 MG PO QAM Metformin HCl (Metformin HCl), 500 MG PO BIDM Simvastatin (Zocor), 40 MG PO QPM Scheduled PRN Budesonide/Formoterol Fumarate (Symbicort 160/4.5 Inhaler ), 2 PUFFS INH BID PRN for Shortness of Breath Allergies Coded Allergies: No Known Allergies (Unverified , 12/26/16) Physical Exam Vital Signs Date Time Temp Pulse Resp B/P (MAP) Pulse Ox O2 Delivery O2 Flow Rate FiO2 12/26/16 11:24 100 156/69 96 Room Air 12/26/16 10:45 99 18 143/73 99 Room Air 12/26/16 08:29 36.6 99 20 150/72 91 Room Air Physical Exam GENERAL: alert, well appearing, well nourished, no distress, non-toxic EYE EXAM: normal conjunctiva, PERRL and EOM's grossly intact OROPHARYNX: no exudate, no erythema, lips, buccal mucosa, and tongue normal and mucous membranes are moist NECK: supple, no nuchal rigidity, no adenopathy, non-tender LUNGS: Clear to auscultation. Normal chest wall mechanics HEART: no murmurs, S1 normal and S2 normal ABDOMEN: Mild tympany to percussion along right abdomen. Abdomen soft, normo- active bowel sounds, no masses, no rebound or guarding. BACK: Back is symmetrical on inspection and there is no deformity, no midline tenderness, no CVA tenderness. SKIN: no rashes and no bruising UPPER EXTREMITIES: upper extremities are grossly normal. LOWER EXTREMITIES: No pitting edema. Left leg and foot braced and wrapped. NEURO EXAM: Normal sensorium, cranial nerves II-XII grossly intact, normal speech, no gross weakness of arms, no gross weakness of legs. Medical Decision & Procedures ER Provider Diagnostic Interpretation: X-ray results have been interpreted by the radiologist and reviewed by me. ABDOMEN 2VIEW W/PA CHEST RTN CLINICAL HISTORY: constipation COMPARISON STUDY: 04/12/2012 FINDINGS: The erect chest reveals no free air. There is no focal pulmonary consolidation. Supine and decubitus views the abdomen reveal scattered stool throughout the colon. There is no pathologic bowel dilatation. There are no transition zones indicate bowel obstruction. IMPRESSION: 1. No evidence of bowel obstruction. No evidence of free air 3. Scattered stool throughout the colon most pronounced at the level of the hepatic flexure and right colon. Electronically signed by: Adrian Ramirez M.D. 12/26/2016 10:01 AM Dictated Date/Time: 12/26/2016 10:00 AM Medications Administered Medications (Trade) Dose Ordered Sig/Evan Route Start Time Stop Time Status Last Admin Dose Admin Oxycodone/ Acetaminophen (Percocet 5-325mg Tab) 1 tab NOW ONCE PO 12/26/16 09:30 12/26/16 09:31 DC 12/26/16 09:30 1 TAB ED Course 0906: The patient was evaluated in room A10. A complete history and physical exam was performed. 30: Ordered Percocet 5-325mg Tab 1 tab PO. 1014: I reevaluated the patient and he wants to try an enema. 1100: Upon reevaluation, the patient had a BM prior to nurse given enema and is feeling better. I discussed the findings and the treatment plan with the patient. He verbalizes agreement and understanding. He was discharged home. Discussed prevention of constipation. Medical Decision Differential diagnoses includes but is not limited to gastritis, peptic ulcer disease, GERD, gallbladder disease, pancreatitis, small bowel obstruction, acute coronary syndrome, pericarditis, ischemic bowel, irritable bowel disease, irritable bowel syndrome, appendicitis, diverticulitis, malignancy, hernia, urinary tract infection, torsion, perforation, trauma, infectious. Doubt SBO, perf, volvulus, ischemia colitis, vascular etiology, bacteremia/ sepsis, pathology - pt felt improved here after BM. Discussed bowel regimen while taking narcotics for pain. Discussed sx to watch/return for, he verbalized understanding and was agreeable with plan. Medication Reconcilliation Current Medication List: was personally reviewed by me Blood Pressure Screening Patient's blood pressure: Elevated blood pressure Blood pressure disposition: Elevated BP felt to be situational Impression Primary Impression: Constipation Scribe Attestation The scribe's documentation has been prepared under my direction and personally reviewed by me in its entirety. I confirm that the note above accurately reflects all work, treatment, procedures, and medical decision making performed by me. Departure Information Dispostion Home / Self-Care Referrals Jonny Leigh DO (PCP) Patient Instructions My [facility] Additional Instructions Please drink plenty of water daily. Please take a daily stool softener or use MiraLAX daily to help prevent any additional constipation while you're taking the pain medication for your foot surgery. If you develop abdominal pain or bloating, are unable to have a bowel movement, noticed blood with the bowel movement, develop fevers, nausea or vomiting, or you have any other new concerns , please return to the emergency room. Please continue your other regular medications as prescribed. Please continue your other postoperative instructions from your surgeon. Problem Qualifiers Primary Impression: Constipation Constipation type: drug induced constipation Qualified Codes: K59.03 - Drug induced constipation
[2016-12-26] MEDS ORDERED: OXYCODONE/ACETAMINOPHEN 5-325 TAB PO ONE (09:30)
--- NOTE | 2016-12-26 10:02 | DIAGNOSTIC IMAGING REPORT ---
ABDOMEN 2VIEW W/PA CHEST RTN CLINICAL HISTORY: constipation COMPARISON STUDY: 04/12/2012 FINDINGS: The erect chest reveals no free air. There is no focal pulmonary consolidation. Supine and decubitus views the abdomen reveal scattered stool throughout the colon. There is no pathologic bowel dilatation. There are no transition zones indicate bowel obstruction. IMPRESSION: 1. No evidence of bowel obstruction. No evidence of free air 3. Scattered stool throughout the colon most pronounced at the level of the hepatic flexure and right colon. Electronically signed by: Adrian Ramirez M.D. 12/26/2016 10:01 AM Dictated Date/Time: 12/26/2016 10:00 AM
[2016-12-26 11:24] VITALS: BP 156/69; PULSE 100; O2SAT 96
== END 2016-12-26 11:38 | disposition home or self-care (01) ==
LOC: C.EDB 08:26 → C.EDA 11:38
DX: K59.00 Constipation, unspecified (principal); R11.0 Nausea; Z98.890 Other specified postprocedural states; E11.9 Type 2 diabetes mellitus without complications; I10 Essential (primary) hypertension; Z79.84 Long term (current) use of oral hypoglycemic drugs

== ENCOUNTER 2019-09-25 10:59 | Inpatient (IN) ==
[2019-09-25] MEDS ORDERED: ONDANSETRON INJ 2 MG/ML 2 ML VIAL IV STA ×2 (11:18→13:37)
[2019-09-25] MEDS ORDERED: SODIUM CHLORIDE 0.9% 500 ML IV SCH (11:30)
[2019-09-25] MEDS: MoRPHine SULFATE 4 MG/ML 1 ML CARP\\VIAL IV PRN ×3 (11:34→13:14)
[2019-09-25 11:40] LABS: Basophils # (auto) 0.02 K/uL (0-0.2); Basophils % (auto) 0.2 %; Eosinophils # (auto) 0.07 K/uL (0-0.5); Eosinophils % (auto) 0.8 %; Immature Granulocytes # (auto) 0.01 K/uL (0.00-0.02); Immature Granulocytes % (auto) 0.1 %; Lymphocytes # (auto) 1.67 K/uL (1.2-3.4); Lymphocytes % (auto) 19.8 %; Mean Corpuscular Hgb Conc 33.3 g/dL (32-36); Mean Platelet Volume 8.7 fL (7.4-10.4); Monocytes # (auto) 0.75 K/uL (0.11-0.59); Monocytes % (auto) 8.9 %; Neutrophils # (auto) 5.91 K/uL (1.4-6.5); Neutrophils % (auto) 70.2 %; Platelet Count 275 K/uL (130-400); RDW Coefficient of Variation 13.1 % (11.5-14.5); RDW Standard Deviation 42.1 fL (36.4-46.3); Red Blood Count 4.83 M/uL (4.7-6.1); White Blood Count 8.43 K/uL (4.8-10.8)
--- NOTE | 2019-09-25 11:50 | Emergency Department Note ---
Impression & Plan Fracture of hip, Ankle sprain and strain ED Provider Note NAME: YAN PANTOJA AGE: 74 SEX: M : 1945 ARRIVES VIA: Walk-In INFORMANT: Patient, ED PROVIDER(S): Kirill Fitzpatrick DO CHIEF COMPLAINT: Left lower extremity pain HPI: The patient is a 74-year-old male who presented to the emergency department for an evaluation of left lower extremity pain. The patient had a fall from a standing position after he tripped over a piece of wood that he was cutting. The patient fell onto his left side. He has very significant pain in his left foot and ankle. He also has pain in his left hip. He does not remember specifically twisting the lower extremity but does remember falling directly on the left hip. The patient had very severe difficulty standing at that time. The patient denies having any head injury. He denies having any headache or neck pain. The patient states his pain is moderate to severe especially with any movement of his left lower extremity or trying to ambulate. He denies having any back pain or chest pain. The patient did not take any medication for pain prior to arrival. ROS: See above HPI for pertinent positives & negatives. A total of 10 systems re viewed and were otherwise negative. PAST MEDICAL HISTORY: See Below PAST SURGICAL HISTORY: See Below FAMILY HISTORY: See Below SOCIAL HISTORY: See Below HOME MEDICATIONS: See Below ALLERGIES: See Below VITALS: See Below PHYSICAL EXAMINATION: GENERAL: The patient is awake and alert. He is very anxious appearing and appears to be uncomfortable. EYES: The conjunctivae are clear. The pupils are round and reactive. EARS, NOSE, MOUTH AND THROAT: The nose is without any evidence of any deformity. NECK: The neck is nontender and supple. The cervical spine was clinically cleared in the emergency department. RESPIRATORY: Normal respiratory effort is noted there is no evidence of wheezing rhonchi or rales CARDIOVASCULAR: Regular rate and rhythm noted there no murmurs rubs or gallops normal S1 normal S2. GASTROINTESTINAL: The abdomen is soft. Abdomen is nontender. BACK: No midline tenderness or or step-off noted range of motion in flexion extension as well as rotation no signs of muscle spasm noted MUSCULOSKELETAL/EXTREMITIES: There is pain with range of motion testing of the left hip. There is mild shortening noted in the left lower extremity. There is tenderness over the distal aspect of the left femur. There is no tenderness with palpation of the left knee and range of motion appears intact. Very significant swelling is noted over the left calcaneus and the left ankle. There is no pain over the midfoot. Pulses were symmetric in both feet. SKIN: There is no obvious evidence of any rash. There are no petechiae, pallor or cyanosis noted. NEUROLOGIC: Patient is awake alert and oriented x3. MEDICAL DECISION MAKING: The patient is a 74-year-old male who presented to the emergency department for an evaluation of left hip pain. The patient had a fall prior to arrival landing on his left hip. On exam the patient did have shortening and pain with range of motion of left hip. Radiographic studies were obtained and did reveal a left hip fracture. He also had significant pain and swelling to his left foot and ankle. X-rays did not reveal any acute fracture. I discussed the patient's laboratory and radiographic studies with him. He was treated with pain medication in the emergency department and on subsequent reevaluation was feel ing much better. [facility] well as [facility] the [facility] group of his choice. They have agreed to evaluate the patient for further management and disposition. Triage Nursing notes reviewed. Prior medical records reviewed Vital Signs: reviewed and remarkable for elevated blood pressure. Differential diagnosis: Fracture, subluxation, dislocation, contusion, ligamentous injury, neurovascular, compartment syndrome, rhabdomyolysis, as well as other pathologies. ER treatment provided: See below Diagnostics interpreted by me: ECG: An EKG was obtained in the emergency department. My interpretation is normal sinus rhythm at 96 bpm. There is no ectopy. There is no acute ST segment abnormalities noted. This was compared to a tracing from March 25, 2018. No significant changes were noted. Cardiac Monitoring: An order was placed for continuous cardiac monitoring. The monitor shows a rate of 85 with sinus rhythm. Laboratory studies: As stated above and show below. Imaging studies: See below Consultation(s): 1300: I discussed this case with Dr. Horan who [facility]. He is agreed to evaluate the patient in the emergency department for further management and disposition. 1335: I discussed this case with Dr. Gurrola who is on-call for the patient's requested orthopedic group. They will evaluate the patient for further management and likely surgical intervention. Past Med/Surg History Medical History Chronic back pain Degenerative disc disease Diabetes TYPE 2, NIDDM Hyperlipidemia Hypertension Macular degeneration Osteoarthritis Peripheral neuropathy Sleep apnea CPAP Surgical History H/O foot surgery TARSAL TENDON REPAIR History of colonoscopy History of total knee replacement Right TKA 2011 Family History Other Family history non-contributory Social History Smoking Status: Never smoker Second Hand Exposure: Yes (DAD SMOKED); Hx Alcohol Use: Yes Alcohol type: beer Hx Substance Use: No Preferred Language: Romansh Communication Ability: Effective Seam Stay Stitcher Required: No Beliefs That Will Affect Care: None marital status: Current Living Situation: Spouse current occupational status: retired Other Information That Helps Us Care for You: No Feels Safe at Home: Yes Safety Concerns: Feels Safe At This Time Allergies Allergies Allergy/AdvReac Type Severity Reaction Status Date / Time No Known Allergies Allergy Verified 09/25/19 12:55 Home Meds Home Medications Medication Instructions Recorded Confirmed hydrochlorothiazide 12.5 mg PO QAM 03/25/18 09/25/19 lisinopril 40 mg PO QAM 03/25/18 09/25/19 metformin 500 mg PO BID 03/25/18 09/25/19 pregabalin 75 mg PO BID 03/25/18 09/25/19 simvastatin 40 mg PO QAM 03/25/18 09/25/19 Results & Data (ED) Vital Signs Vital Signs - 24 hr 09/25/19 11:07 09/25/19 11:30 09/25/19 11:36 Temperature 36.9 C Temperature Source Oral Pulse Rate 104 H 97 H 96 H Pulse Rate [Apical] Pulse Rate from SpO2 Sensor 97 H Pulse Rhythm Regular Pulse Strength Normal Respiratory Rate 20 20 20 Respiratory Effort / Characteristics Non-Labored Spontaneous Respiratory Depth Normal Respiratory Pattern Regular Blood Pressure 120/66 120/88 Blood Pressure [Right Arm] Blood Pressure Mean 84 106 Blood Pressure Mean [Right Arm] Blood Pressure Position Sitting Pulse Oximetry 95 94 94 Oxygen Delivery Method Room Air Room Air Sepsis Recent Fever Within 48 Hours No Sepsis New/Unexplained Change in Mental Status No Sepsis Action Taken by Nursing No Action Required 09/25/19 11:37 09/25/19 11:44 09/25/19 12:00 Temperature Temperature Source Pulse Rate 95 H 103 H Pulse Rate [Apical] 93 H Pulse Rate from SpO2 Sensor 96 H 102 H Pulse Rhythm Pulse Strength Respiratory Rate 20 20 24 Respiratory Effort / Characteristics Non-Labored Spontaneous Respiratory Depth Normal Respiratory Pattern Regular Blood Pressure 148/75 H Blood Pressure [Right Arm] 120/88 Blood Pressure Mean 97 Blood Pressure Mean [Right Arm] 98 Blood Pressure Position Pulse Oximetry 95 95 96 Oxygen Delivery Method Room Air Sepsis Recent Fever Within 48 Hours Sepsis New/Unexplained Change in Mental Status Sepsis Action Taken by Nursing 09/25/19 12:01 09/25/19 12:30 09/25/19 12:31 Temperature Temperature Source Pulse Rate 102 H 109 H 104 H Pulse Rate [Apical] Pulse Rate from SpO2 Sensor 101 H Pulse Rhythm Pulse Strength Respiratory Rate 20 23 22 Respiratory Effort / Characteristics Respiratory Depth Respiratory Pattern Blood Pressure 160/89 H Blood Pressure [Right Arm] Blood Pressure Mean 122 Blood Pressure Mean [Right Arm] Blood Pressure Position Pulse Oximetry 96 Oxygen Delivery Method Sepsis Recent Fever Within 48 Hours Sepsis New/Unexplained Change in Mental Status Sepsis Action Taken by Nursing 09/25/19 13:00 09/25/19 13:01 09/25/19 13:30 Temperature Temperature Source Pulse Rate 102 H 103 H 83 Pulse Rate [Apical] Pulse Rate from SpO2 Sensor 102 H 104 H 86 Pulse Rhythm Pulse Strength Respiratory Rate 20 16 20 Respiratory Effort / Characteristics Respiratory Depth Respiratory Pattern Blood Pressure 135/86 114/64 Blood Pressure [Right Arm] Blood Pressure Mean 103 70 Blood Pressure Mean [Right Arm] Blood Pressure Position Pulse Oximetry 94 95 94 Oxygen Delivery Method Sepsis Recent Fever Within 48 Hours Sepsis New/Unexplained Change in Mental Status Sepsis Action Taken by Nursing 09/25/19 13:31 Temperature Temperature Source Pulse Rate 84 Pulse Rate [Apical] Pulse Rate from SpO2 Sensor 84 Pulse Rhythm Pulse Strength Respiratory Rate 22 Respiratory Effort / Characteristics Respiratory Depth Respiratory Pattern Blood Pressure Blood Pressure [Right Arm] Blood Pressure Mean Blood Pressure Mean [Right Arm] Blood Pressure Position Pulse Oximetry 95 Oxygen Delivery Method Sepsis Recent Fever Within 48 Hours Sepsis New/Unexplained Change in Mental Status Sepsis Action Taken by [facility] Medications Current Medication List: was personally reviewed by me Laboratory Data Attestation: I reviewed the patient's lab results. Result diagrams: 09/26/19 05:43 09/26/19 05:43 Lab Results 09/25/19 09/25/19 09/25/19 Range/Units 11:20 11:20 11:20 WBC 8.43 (4.8-10.8) K/uL RBC 4.83 (4.7-6.1) M/uL Hgb 14.0 (14.0-18.0) g/dL Hct 42.0 (42-52) % MCV 87.0 (80-100) fL MCH 29.0 (25-34) pg MCHC 33.3 (32-36) g/dL RDW Std Deviation 42.1 (36.4-46.3) fL RDW Coeff of Vipin 13.1 (11.5-14.5) % Plt Count 275 (130-400) K/uL MPV 8.7 (7.4-10.4) fL Immature Gran % (Auto) 0.1 % Neut % (Auto) 70.2 % Lymph % (Auto) 19.8 % [place] % (Auto) 8.9 % Eos % (Auto) 0.8 % Baso % (Auto) 0.2 % Neut # (Auto) 5.91 (1.4-6.5) K/uL Lymph # (Auto) 1.67 (1.2-3.4) K/uL [place] # (Auto) 0.75 H (0.11-0.59) K/uL Eos # (Auto) 0.07 (0-0.5) K/uL Baso # (Auto) 0.02 (0-0.2) K/uL Immature Gran # (Auto) 0.01 (0.00-0.02) K/uL PT 10.2 (9.0-12.0) Seconds INR 1.0 (0.9-1.1) APTT 24.6 (21.0-31.0) Seconds PTT Ratio 0.9 Sodium 136 (136-145) mmol/L Potassium 3.8 (3.5-5.1) mmol/L Chloride 102 (98-107) mmol/L Carbon Dioxide 28 (21-32) mmol/L Anion Gap 6.0 (3-11) BUN 15 (7-18) mg/dl Creatinine 0.95 (0.6-1.4) mg/dl Est Cr Clr Drug Dosing 70.4 ml/min Est GFR ( Amer) 91.0 Est GFR (Non-Af Amer) 78.5 BUN/Creatinine Ratio 15.9 (10-20) Glucose 109 H (70-99) mg/dl Calcium 8.5 (8.5-10.1) mg/dl Total Bilirubin 0.3 (0.2-1) mg/dl AST 11 L (15-37) U/L ALT 20 (12-78) U/L Alkaline Phosphatase 76 (45-117) U/L Troponin I < 0.015 (0-0.045) ng/ml Total Protein 7.2 (6.4-8.2) gm/dl Albumin 3.5 (3.4-5.0) gm/dl Globulin 3.7 (2.5-4.0) gm/dl Albumin/Globulin Ratio 0.9 (0.9-2) Lipase 86 (73-393) U/L Hepatitis C Ab Screen (Neg) 09/25/19 Range/Units 11:20 WBC (4.8-10.8) K/uL RBC (4.7-6.1) M/uL Hgb (14.0-18.0) g/dL Hct (42-52) % MCV (80-100) fL MCH (25-34) pg MCHC (32-36) g/dL RDW Std Deviation (36.4-46.3) fL RDW Coeff of Vipin (11.5-14.5) % Plt Count (130-400) K/uL MPV (7.4-10.4) fL Immature Gran % (Auto) % Neut % (Auto) % Lymph % (Auto) % [place] % (Auto) % Eos % (Auto) % Baso % (Auto) % Neut # (Auto) (1.4-6.5) K/uL Lymph # (Auto) (1.2-3.4) K/uL [place] # (Auto) (0.11-0.59) K/uL Eos # (Auto) (0-0.5) K/uL Baso # (Auto) (0-0.2) K/uL Immature Gran # (Auto) (0.00-0.02) K/uL PT (9.0-12.0) Seconds INR (0.9-1.1) APTT (21.0-31.0) Seconds PTT Ratio Sodium (136-145) mmol/L Potassium (3.5-5.1) mmol/L Chloride (98-107) mmol/L Carbon Dioxide (21-32) mmol/L Anion Gap (3-11) BUN (7-18) mg/dl Creatinine (0.6-1.4) mg/dl Est Cr Clr Drug Dosing ml/min Est GFR ( Amer) Est GFR (Non-Af Amer) BUN/Creatinine Ratio (10-20) Glucose (70-99) mg/dl Calcium (8.5-10.1) mg/dl Total Bilirubin (0.2-1) mg/dl AST (15-37) U/L ALT (12-78) U/L Alkaline Phosphatase (45-117) U/L Troponin I (0-0.045) ng/ml Total Protein (6.4-8.2) gm/dl Albumin (3.4-5.0) gm/dl Globulin (2.5-4.0) gm/dl Albumin/Globulin Ratio (0.9-2) Lipase (73-393) U/L Hepatitis C Ab Screen Neg (Neg) Administered Medications Hydromorphone HCl (Hydromorphone Inj 0.5 Mg/0.5 Ml Syr) 0.25 - 0.5 mg IV Q1H PRN PRN Reason: Moderate/Severe Pain Stop: 10/09/19 15:14 Last Admin: 09/26/19 05:08 Dose: 0.5 mg Documented by: [id number] Admin: 09/26/19 03:09 Dose: 0.5 mg Documented by: [id number] Admin: 09/26/19 01:37 Dose: 0.5 mg Documented by: [id number] Admin: 09/26/19 00:33 Dose: 0.5 mg Documented by: [id number] Admin: 09/25/19 22:07 Dose: 0.5 mg Documented by: [id number] Admin: 09/25/19 20:52 Dose: 0.5 mg Documented by: [id number] Admin: 09/25/19 17:15 Dose: 0.5 mg Documented by: [id number] Admin: 09/25/19 15:48 Dose: 0.5 mg Documented by: [id number] Lactated Ringer's (Lr) 1,000 mls @ 125 mls/hr IV .Q8H TONIE Stop: 10/25/19 15:14 Last Admin: 09/25/19 23:40 Dose: 125 mls/hr Documented by: [id number] Infusion: 09/25/19 23:40 Dose: 125 mls/hr Documented by: [id number] Admin: 09/25/19 15:40 Dose: 125 mls/hr Documented by: [id number] Insulin Aspart (Insulin Aspart 100 Units/Ml 3 Ml Pen) 0 units SC Q6 TONIE Stop: 10/26/19 05:59 Last Admin: 09/26/19 06:05 Dose: Not Given Documented by: [id number] Cosigned by: [id number] Pregabalin (Pregabalin 75 Mg Cap) 75 mg PO BID TONIE Stop: 10/25/19 20:59 Last Admin: 09/25/19 20:52 Dose: 75 mg Documented by: [id number] Senna/Docusate Sodium (Docusate Sodium/Senna 50/8.6mg Tab) 2 tab PO HS [facility] Stop: 10/25/19 20:59 Last Admin: 09/25/19 20:48 Dose: 2 tab Documented by: [id number] Discontinued Medications Fentanyl Citrate (Fentanyl Citrate 100 Mcg/2 Ml Vial) 50 mcg IV NOW STA Stop: 09/25/19 13:22 Last Admin: 09/25/19 14:19 Dose: Not Given Documented by: [id number] Hydromorphone HCl (Hydromorphone Inj 1 Mg/Ml Syringe) 1 mg IV NOW STA Stop: 09/25/19 17:28 Last Admin: 09/25/19 19:00 Dose: 1 mg Documented by: [id number] Sodium Chloride (Nss) 500 mls @ 999 mls/hr IV .Q31M TONIE Stop: 09/25/19 12:00 Last Infusion: 09/25/19 12:01 Dose: 0 mls/hr Documented by: [id number] Admin: 09/25/19 11:29 Dose: 999 mls/hr Documented by: [id number] Lorazepam (Ativan) 1 mg in 2 mls @ 2 mls/min IV NOW STA Stop: 09/25/19 17:28 Last Admin: 09/25/19 19:00 Dose: 2 mls/min Documented by: [id number] Insulin Aspart (Insulin Aspart 100 Units/Ml 3 Ml Pen) 0 units SC ACHS TONIE Stop: 10/25/19 16:29 Last Admin: 09/25/19 22:27 Dose: Not Given Documented by: [id number] Admin: 09/25/19 18:01 Dose: Not Given Documented by: [id number] Cosigned by: [id number] Morphine Sulfate (Morphine Sulfate 4 Mg/Ml 1 Ml Carp\Vial) 4 mg IV Q15M PRN PRN Reason: Pain Stop: 10/09/19 11:17 Last Admin: 09/25/19 13:14 Dose: 4 mg Documented by: [id number] Admin: 09/25/19 12:04 Dose: 4 mg Documented by: [id number] Admin: 09/25/19 11:34 Dose: 4 mg Documented by: [id number] Ondansetron HCl (Ondansetron Inj 2 Mg/Ml 2 Ml Vial) 4 mg IV NOW STA Stop: 09/25/19 11:19 Last Admin: 09/25/19 11:30 Dose: 4 mg Documented by: [id number] Ondansetron HCl (Ondansetron Inj 2 Mg/Ml 2 Ml Vial) 4 mg IV NOW STA Stop: 09/25/19 13:38 Last Admin: 09/25/19 14:17 Dose: Not Given Documented by: [id number] Imaging Data Radiologist's Impression: XR chest 1V portable HISTORY: 74 years-old Male fall acute chest trauma status post fall COMPARISON: Chest radiograph 03/25/2018 TECHNIQUE: Portable supine AP view of the chest FINDINGS: Cardiac silhouette is enlarged, unchanged. No pneumothorax, pleural effusion, airspace consolidation or overt pulmonary edema. Degenerative changes of the shoulders and spine. IMPRESSION: Cardiomegaly without acute process. ACT 112: Negative or not required by law. The above report was generated using voice recognition software. It may contain grammatical, syntax or spelling errors. Electronically signed by: Otto Jung M.D. 09/25/2019 12:47 PM Dictated: 09/25/19 1245 Transcribed: 09/25/19 1245 XR hip LT 2V w pelvis CLINICAL HISTORY: Fall. COMPARISON: None FINDINGS: Sacroiliac joints and symphysis pubis are intact. No acute fracture within the pelvis or right hip is noted. Note is made of a angulated mildly displaced acute left femoral neck fracture. IMPRESSION: Angulated mildly displaced acute left femoral neck fracture. ACT 112: Negative or not required by law. Electronically signed by: Pipo Sandoval M.D. 09/25/2019 12:49 PM Dictated: 09/25/19 1247 Transcribed: 09/25/19 1247 XR foot LT 2V, XR ankle LT 2V, XR calcaneus LT min 2V HISTORY: 74 years-old Male fall . Acute left foot and ankle pain COMPARISON: None TECHNIQUE: 2 views of the left foot with 3 views of the left ankle and 2 views of the left calcaneus FINDINGS: FOOT: Moderate multifocal osteoarthritis. Limited exam secondary to positioning. No acute fracture, dislocation or opaque foreign body. CALCANEUS: Moderate sized plantar enthesophyte. No acute fracture, dislocation or opaque foreign body. Soft tissue swelling of the ankle. ANKLE: Circumferential soft tissue swelling of the ankle. Limited exam secondary to positioning. There is at least mild tibiotalar osteoarthritis. No acute fracture or dislocation. IMPRESSION: Limited exam secondary to positioning. Soft tissue swelling without acute fracture or dislocation. ACT 112: Negative or not required by law. The above report was generated using voice recognition software. It may contain grammatical, syntax or spelling errors. Electronically signed by: Otto Jung M.D. 09/25/2019 12:49 PM Dictated: 09/25/19 1247 Transcribed: 09/25/191246 Blood Pressure Blood Pressure Findings: Elevated blood pressure Blood Pressure Disposition: further management by hospitalist Discharge Plan Visit Data Chief Complaint: Leg Injury/Pain Stated Complaint: BROKEN LEG ED Provider: Kirill Fitzpatrick Discharge Problem: Fracture of hip, Ankle sprain and strain Patient Disposition: Admitted As Inpatient Condition: Good Discharge Instructions Interventions: ED Discharge Assessment Last Done: 09/25/19 14:24 Discharge Problem: Fracture of hip Qualifiers: Encounter type: initial encounter Fracture type: closed Laterality: left Qual ified Code(s): S72.002A - Fracture of unspecified part of neck of left femur, initial encounter for closed fracture
[2019-09-25 11:51] LABS: Partial Thromboplastin Ratio 0.9; Partial Thromboplastin Time 24.6 Seconds (21.0-31.0); Prothrombin Time 10.2 Seconds (9.0-12.0)
[2019-09-25 11:58] LABS: Alanine Aminotransferase 20 U/L (12-78); Albumin Level 3.5 gm/dl (3.4-5.0); Aspartate Aminotransferase 11 U/L (15-37); BUN Creatinine Ratio 15.9 (10-20); Blood Urea Nitrogen 15 mg/dl (7-18); Calcium 8.5 mg/dl (8.5-10.1); Carbon Dioxide 28 mmol/L (21-32); Chloride 102 mmol/L (98-107); Creatinine Clr Calc Pharmacy 70.4 ml/min; Est GFR (Non-African American) 78.5; Glucose 109 mg/dl (70-99); Lipase 86 U/L (73-393); Potassium 3.8 mmol/L (3.5-5.1); Sodium 136 mmol/L (136-145)
[2019-09-25 12:03] LABS: Albumin Globulin Ratio 0.9 (0.9-2); Alkaline Phosphatase 76 U/L (45-117); Bilirubin,Total 0.3 mg/dl (0.2-1); Globulin 3.7 gm/dl (2.5-4.0); Total Protein 7.2 gm/dl (6.4-8.2); Troponin I < 0.015 ng/ml (0-0.045)
--- NOTE | 2019-09-25 12:48 | XRay Report ---
XR chest 1V portable HISTORY: 74 years-old Male fall acute chest trauma status post fall COMPARISON: Chest radiograph 03/25/2018 TECHNIQUE: Portable supine AP view of the chest FINDINGS: Cardiac silhouette is enlarged, unchanged. No pneumothorax, pleural effusion, airspace consolidation or overt pulmonary edema. Degenerative changes of the shoulders and spine. IMPRESSION: Cardiomegaly without acute process. ACT 112: Negative or not required by law. The above report was generated using voice recognition software. It may contain grammatical, syntax o r spelling errors. Electronically signed by: Otto Jung M.D. 09/25/2019 12:47 PM
--- NOTE | 2019-09-25 12:50 | XRay Report ---
XR hip LT 2V w pelvis CLINICAL HISTORY: Fall. COMPARISON: None FINDINGS: Sacroiliac joints and symphysis pubis are intact. No acute fracture within the pelvis or r ight hip is noted. Note is made of a angulated mildly displaced acute left femoral neck fracture. IMPRESSION: Angulated mildly displaced acute left femoral neck fracture. ACT 112: Negative or not required by law. Electronically signed by: Pipo Sandoval M.D. 09/25/2019 12:49 PM
--- NOTE | 2019-09-25 12:51 | XRay Report ---
XR foot LT 2V, XR ankle LT 2V, XR calcaneus LT min 2V HISTORY: 74 years-old Male fall . Acute left foot and ankle pain COMPARISON: None TECHNIQUE: 2 views of the left foot with 3 views of the left ankle and 2 views of the left calcaneus FINDINGS: FOOT: Moderate multifocal osteoarthritis. Limited exam secondary to positioning. No acute fracture, disloca tion or opaque foreign body. CALCANEUS: Moderate sized plantar enthesophyte. No acute fracture, dislocation or opaque foreign body. Soft tiss ue swelling of the ankle. ANKLE: Circumferential soft tissue swelling of the ankle. Limited exam secondary to positioning. There is at least mild tibiotalar osteoarthritis. No acute fracture or dislocation. IMPRESSION: Limited exam secondary to positioning. Soft tissue swelling without acute fracture or dis location. ACT 112: Negative or not required by law. The above report was generated using voice recognition software. It may contain grammatical, syntax o r spelling errors. Electronically signed by: Otto Jung M.D. 09/25/2019 12:49 PM
--- NOTE | 2019-09-25 12:51 | XRay Report ---
XR femur LT 2V routine CLINICAL HISTORY: fall COMPARISON: None FINDINGS: Note is made of an angulated mildly displaced acute left femoral neck fracture. No distal left femoral fracture is noted. Alignment of the left knee is anatomic. Pelvic calcifications favor p hleboliths. No acute fractures are identified within visualized portions of the left hemipelvis. IMPRESSION: Acute angulated mildly displaced left femoral neck fracture. ACT 112: Negative or not required by law. Electronically signed by: Pipo Sandoval M.D. 09/25/2019 12:49 PM
--- NOTE | 2019-09-25 13:00 | History & Physical Report ---
Date of Service September 25, 2019 Assessment & Plan (1) Fracture of hip: Closed femoral neck mildly displaced fracture. Medically optimized for surgery at this time. Last ate and drank as per HPI. Revised cardiac risk score 0; 3.9% 30-day risk of , [place], cardiac arrest. Will defer traction given significant amounts of pain in his left foot. Dilaudid 0.5-1mg IV q1h PRN for pain, ondansetron 4 mg IV. Consult orthopedics for operative management - n.p.o. with LR IV @ 125 ml/hr until reviewed by orthopedics. Vitamin D level in a.m. recommend follow-up DEXA scan with his PCP in approximately 4-6 weeks. (2) Left ankle pain: Unclear what is previous surgery entailed but suspect ?tarsal tunnel syndrome (per description from patient) versus tarsal tendon repair (as noted in EHR problem list). Unable to fully clinically assess due to significant hip pain limiting his ankle movements on admission. Will defer to orthopedics regarding further imaging of his ankle. (3) Diabetes: Unknown HbA1c but he reports under control. Type II diabetic diet once he is about to eat and drink HbA1c with a.m. labs Novolog correction factor only with BSG ACHS. If requiring significant amounts of insulin will add carb coverage and basal insulin. (4) HTN (hypertension): Hold hydrochlorothiazide given current blood pressure. Continue lisinopril 20 mg p.o. every morning. (5) Sleep apnea: CPAP HS @15 cm H2O (6) Peripheral neuropathy: Appears to be more a nerve entrapment from description rather than peripheral neuropathy. Continue pregabalin 75 mg p.o. twice daily (7) DVT prophylaxis: SCDs ordered for unaffected leg Chemical prophylaxis deferred to orthopedics History of Present Illness Chief Complaint: Left hip pain following a fall Primary Care Provider: Jonny Leigh Ryan Sarmiento is a 74 year old male with hypertension, diabetes, left ankle neuropathic pain, hyperlipidemia who presents to the ER with left hip pain after falling. He reports feeling well and his normal self this morning. He was cutting wood outside and tripped over a log falling from a standing position onto grass. He fell onto his left side. Significant pain in his left hip, foot, ankle since falling. He denies any dizziness, chest pain, shortness of breath prior to falling. Pain initially 10/10, currently 7/10 after x3 morphine 4 mg IV given in the ER. Feels the pain is over his left hip and radiates down his leg to his feet. Constant aching. 10 years ago got nerve pain in his left foot. 2 surgeries to left foot for ?nerve entrapment, . Last ate 6:30am-7am. [place] and coffee. Took all his medication this morning. Allergies Allergy/AdvReac Type Severity Reaction Status Date / Time No Known Allergies Allergy Verified 09/25/19 12:55 Home Medications Home Medications Medication Instructions Recorded Confirmed Type hydrochlorothiazide 12.5 mg PO QAM 03/25/18 09/25/19 History lisinopril 40 mg PO QAM 03/25/18 09/25/19 History metformin 500 mg PO BID 03/25/18 09/25/19 History pregabalin 75 mg PO BID 03/25/18 09/25/19 History simvastatin 40 mg PO QAM 03/25/18 09/25/19 History Past Med/Surg History Medical History Chronic back pain Degenerative disc disease Diabetes TYPE 2, NIDDM Hyperlipidemia Hypertension Macular degeneration Osteoarthritis Peripheral neuropathy Sleep apnea CPAP Surgical History H/O foot surgery TARSAL TENDON REPAIR History of colonoscopy History of total knee replacement Right TKA 2011 Family History Other Family history non-contributory Social History Smoking Status: Never smoker Second Hand Exposure: Yes (DAD SMOKED); Hx Alcohol Use: Yes Alcohol type: beer Hx Substance Use: No Preferred Language: Albanian Communication Ability: Effective Plant Operations Coordinator Required: No Beliefs That Will Affect Care: None marital status: Current Living Situation: Spouse current occupational status: retired Other Information That Helps Us Care for You: No Feels Safe at Home: Yes Safety Concerns: Feels Safe At This Time Review of Systems Review of Systems: All systems reviewed & are unremarkable except as noted in HPI & below Physical Exam Constitutional: well developed and well nourished; no acute distress Eyes: PERRL, conjunctivae normal, anicteric sclerae ENMT: external ear and nose normal, oropharynx normal Neck: trachea midline, no thyromegaly Respiratory: normal respiratory effort, lungs clear to auscultation Cardiovascular: RRR, no murmur, no edema Gastrointestinal (Abdomen): normal bowel sounds, soft, nontender, no hepatosplenomegaly Musculoskeletal: Externally rotated and shortened left leg and significant amount of left lateral hip and groin pain. Neurovascularly intact distally. Swelling and pain on left ankle mainly posterior to medial malleolus on palpation. Unable to fully assess movements due to a causing pain in his head. Inversion of his left possibly reduced. Skin: no rashes, warm and dry Neurologic: moves all extremities (Unable to fully access left leg due to pain from hip fracture) and awake Psychiatric: A+Ox3, euthymic affect Results & Data Results & Data ([facility]) Vital Signs (Past 12 Hours) Vital Signs Temp Pulse Pulse Resp BP BP Pulse Ox 09/25/19 12:31 104 H 22 09/25/19 12:30 109 H 23 160/89 H 09/25/19 12:01 102 H 20 96 09/25/19 12:00 103 H 24 148/75 H 96 09/25/19 11:44 95 H 20 95 09/25/19 11:37 93 H 20 120/88 95 09/25/19 11:36 96 H 20 94 09/25/19 11:30 97 H 20 120/88 94 09/25/19 11:07 36.9 C 104 H 20 120/66 95 Diagnostic Findings XR foot LT 2V, XR ankle LT 2V, XR calcaneus LT min 2V IMPRESSION: Limited exam secondary to positioning. Soft tissue swelling without acute fracture or dislocation. XR femur LT 2V routine IMPRESSION: Acute angulated mildly displaced left femoral neck fracture. XR hip LT 2V w pelvis IMPRESSION: Angulated mildly displaced acute left femoral neck fracture. XR chest 1V portable IMPRESSION: Cardiomegaly without acute process. ECG Indication: other (Preop) Rate (beats per minute): 96 Rhythm: normal sinus Findings: + other (RSR pattern in V1) and + nonspecific-ST abn Comparison ECG Date: from (March 25, 2018) Change: no significant change Code Status & VTE Plan Code Status Full VTE Prophylaxis Plan VTE Prophylaxis will be ordered: Yes PG Care Time/CCT Total # of Minutes Spent Total Time Spent with Patient: Total time spent is greater than 50% in coordination of care (as documented) at patient's floor/unit and/or counseling patient: Coding Level of Care Code 54727 Initial Inpt Care Lvl 2 Diagnoses Fracture of hip S72.002A Encounter type: initial encounter Fracture type: closed Laterality: left Left ankle pain M25.572 Diabetes E11.8 Diabetes mellitus complication status: with unspecified complications Diabetes mellitus halfway insulin use: without long term care social worker use Diabetes mellitus type: type 2 HTN (hypertension) I10 Hypertension type: unspecified Sleep apnea G47.30 Peripheral neuropathy G62.9 DVT prophylaxis Z29.9 (1) Fracture of hip Encounter type: initial encounter Fracture type: closed Laterality: left Qualified Code(s): S72.002A - Fracture of unspecified part of neck of left femur, initial encounter for closed fracture (2) Diabetes Diabetes mellitus complication status: with unspecified complications Diabetes mellitus halfway insulin use: without halfway use Diabetes mellitus type: type 2 Qualified Code(s): E11.8 - Type 2 diabetes mellitus with unspecified complications (3) HTN (hypertension) Hypertension type: unspecified Qualified Code(s): I10 - Essential (primary) hypertension
--- NOTE | 2019-09-25 13:11 | Electrocardiogram Report ---
Test Reason : Blood Pressure : / mmHG Vent. Rate : 096 BPM Atrial Rate : 096 BPM P-R Int : 128 ms QRS Dur : 096 ms QT Int : 368 ms P-R-T Axes : 112 014 060 degrees QTc Int : 464 ms Poor data quality, interpretation may be adversely affected Normal sinus rhythm RSR' or QR pattern in V1 suggests right ventricular conduction delay Nonspecific ST and T wave abnormality Abnormal ECG When compared with ECG of 25-MAR-2018 06:00, No significant change was found Confirmed by Kirill Taylor ([id number]) on 09/25/2019 1:11:10 PM Referred By: Confirmed By:Kirill Taylor
[2019-09-25] MEDS ORDERED: fentaNYL citrate 100 MCG/2 ML VIAL IV STA (13:21)
[2019-09-25] MEDS ORDERED: ONDANSETRON INJ 2 MG/ML 2 ML VIAL IV PRN (15:15)
[2019-09-25] MEDS ORDERED: MAGNESIUM HYDROXIDE SUSP 30 ML UDC PO PRN (15:15)
[2019-09-25] MEDS ORDERED: ACETAMINOPHEN 325 MG TAB PO PRN (15:15)
[2019-09-25] MEDS ORDERED: NALOXONE HCL 0.4 MG/1 ML VIAL/CARP IV PRN (15:15)
[2019-09-25] MEDS ORDERED: PROMETHAZINE HCL 12.5 MG in SODIUM CHLORIDE 0.9% 50 ML IV PRN (15:15)
[2019-09-25] MEDS ORDERED: bisacodyL 10 MG SUPP PR PRN (15:15)
[2019-09-25] MEDS: LACTATED RINGER'S 1,000 ML IV SCH ×2 (15:40→23:40)
[2019-09-25] MEDS: HYDROmorphone INJ 0.5 MG/0.5 ML SYR IV PRN ×4 (15:48→22:07)
[2019-09-25] MEDS ORDERED: GLUCOSE 40% GEL 15 GM TUBE PO PRN (16:09)
[2019-09-25] MEDS ORDERED: GLUCAGON FOR INJ 1 MG VIAL SQ PRN (16:09)
[2019-09-25] MEDS ORDERED: CARBOHYDRATES FOR HYPOGLYCEMIA PO PRN (16:09)
[2019-09-25] MEDS ORDERED: DEXTROSE 50% 50 ML SYRINGE IV PRN (16:09)
[2019-09-25] MEDS ORDERED: GLUCOSE 10 TABS/TUBE PO PRN (16:09)
[2019-09-25] MEDS ORDERED: LORazepam 1 MG/2 ML VIAL IV STA (17:27)
[2019-09-25] MEDS ORDERED: HYDROmorphone INJ 1 MG/ML SYRINGE IV STA (17:27)
--- NOTE | 2019-09-25 17:54 | Anesthesiology Consultation ---
Date of Service September 25, 2019 Assessment & Plan Chart Review Chart Review: Acceptable Risk for Surgery and Patient NOT seen in Pre Admission Testing Consults Requested none ASA ASA4 History Surgery Operation Date: 09/26/19 12:30 Proposed Procedures p Left Total Hip Arthroplasty - Sourav Bocanegra MD Height/Weight Height: 5 ft 10 in Weight: 87.3 kg Allergies Allergy/AdvReac Type Severity Reaction Status Date / Time No Known Allergies Allergy Verified 09/25/19 12:55 Medications Home Medications Medication Instructions Recorded Confirmed Last Taken hydrochlorothiazide 12.5 mg PO QAM 03/25/18 09/25/19 09/25/19 lisinopril 40 mg PO QAM 03/25/18 09/25/19 09/25/19 metformin 500 mg PO BID 03/25/18 09/25/19 09/25/19 pregabalin 75 mg PO BID 03/25/18 09/25/19 09/25/19 simvastatin 40 mg PO QAM 03/25/18 09/25/19 09/25/19 Active Medications Generic Name Dose Route Start Last Admin Trade Name Freq PRN Reason Stop Dose Admin Hydromorphone HCl 0.25 - 0.5 mg 09/25/19 15:15 09/25/19 17:15 Hydromorphone Inj 0.5 Mg/0.5 Ml Syr IV 10/09/19 15:14 0.5 mg Q1H PRN Administration Moderate/Severe Pain Lactated Ringer's 1,000 mls @ 125 mls/hr 09/25/19 15:15 09/25/19 15:40 Lr IV 10/25/19 15:14 125 mls/hr .Q8H TONIE Administration Past Medical History Medical History Chronic back pain Degenerative disc disease Diabetes TYPE 2, NIDDM Hyperlipidemia Hypertension Macular degeneration Osteoarthritis Peripheral neuropathy Sleep apnea CPAP Exercise / Class Metabolic Activity III < 4 Walking/Shop/Light housework Past Family History Family History Other Family history non-contributory Past Surgical History Surgical History H/O foot surgery TARSAL TENDON REPAIR History of colonoscopy History of total knee replacement Right TKA 2011 Past Anesthesia History No Hx of Anesthesia Complications and No Family Hx of Anesthesia Complications History of PONV No Hx of PONV and No Hx of Motion Sickness Social History Smoking Status: Never smoker Hx Alcohol Use: Yes Alcohol type: beer alcohol intake frequency: a few times a week Hx Substance Use: No substance use type: does not use Physical Exam Vital Signs Last Vital Signs Temp 36.9 C 09/25/19 15:16 Pulse 95 H 09/25/19 15:16 Resp 20 09/25/19 15:16 BP 172/81 H 09/25/19 15:16 Pulse Ox 95 09/25/19 15:16 Testing Laboratory Results 09/25/19 11:20 09/25/19 11:20 PT 10.2 Seconds (9.0-12.0) 09/25/19 11:20 INR 1.0 (0.9-1.1) 09/25/19 11:20 APTT 24.6 Seconds (21.0-31.0) 09/25/19 11:20 Blood Type A Positive 09/25/19 14:51 Antibody Screen NEGATIVE 09/25/19 14:51 09/25/19 17:24 POC Glucose 132 H Electrocardiogram Date: 09/25/19 Findings: + NSR @ (at 96;RSR pattern,) and + NSST changes Chest X-Ray Date: 09/25/19 Findings: + NAD and + cardiomegaly
[2019-09-25] MEDS: INSULIN ASPART 100 UNITS/ML 3 ML PEN SC SCH ×2 (18:01→22:27)
--- NOTE | 2019-09-25 20:35 | Consultation Report ---
DATE OF CONSULTATION: 09/25/2019 ORTHOPEDIC CONSULTATION CHIEF COMPLAINT: Left hip pain. HISTORY OF PRESENT ILLNESS: The patient is a 74-year-old gentleman who is well known to me from having performed a right knee replacement on him about 8 years ago. He has a history of hypertension, diabetes, elevated cholesterol, and neuropathy. He sustained a fall earlier today when he was cutting wood. He tripped over a log and landed on his left hip and side. He had the acute onset of left hip pain. He was brought to the Emergency Room where x-rays revealed a displaced femoral neck fracture. We were consulted for evaluation. He denies any other injuries. He has a history of chronic left foot pain and 2 previous surgeries. No preexisting hip pain. Denies any chest pain or shortness of breath. No head injury, no loss of consciousness. PAST MEDICAL HISTORY: Significant for, 1. Diabetes. 2. Hypertension. 3. Unspecified neuropathy. 4. Elevated cholesterol. 5. Chronic left foot and ankle pain. REVIEW OF SYSTEMS: Remainder of the review of systems is per the H and P provided by the medicine service. OBJECTIVE: VITAL SIGNS: Temperature is 36.9. Vital signs stable. GENERAL: Shows a pleasant, middle-aged male, looks to be in quite good health. MUSCULOSKELETAL: General musculoskeletal exam reveals painless range of motion of his cervical, thoracic and lumbar spine. He has got full and painless range of motion of both upper extremities and the right lower extremity. Examination of the left lower extremity reveals the leg to be shortened and externally rotated. He appears quite uncomfortable just in the resting position. He has pain with any type of hip motion. He can flex and extend his toes appropriately. He does have some slight chronic deformity to his foot, but no swelling or acute signs of trauma. No knee effusion. X-RAYS: X-rays of the left hip revealed displaced femoral neck fracture. Minimal underlying arthritis. X-rays of the left foot reveal no obvious acute abnormalities. He has got a chronic calcification of his plantar fascia. Mild degenerative changes. ASSESSMENT: A 74-year-old male with a history of hypertension, diabetes, elevated cholesterol, and right knee replacement in the past with a displaced femoral neck fracture from a fall. He is quite active and reasonably healthy. PLAN: We discussed treatment options. Concerning his age and activity level, I think he is best served with a total hip replacement. Alternatives would be a bipolar hip, but I think with his activity level, I think he will do better with a full hip replacement. After an extensive discussion, we are going to proceed with a left total hip replacement. He has been medically evaluated and optimized. We will keep him n.p.o. after midnight. We will begin DVT prophylaxis including TEDs and SCDs. We will place him in Lopez's traction for comfort. We will plan on doing this tomorrow. Informed consent was obtained.
[2019-09-25] MEDS: DOCUSATE SODIUM/SENNA 50/8.6MG TAB PO SCH (20:48)
[2019-09-25] MEDS: PREGABALIN 75 MG CAP PO SCH (20:52)
[2019-09-26] MEDS: HYDROmorphone INJ 0.5 MG/0.5 ML SYR IV PRN ×11 (00:33→19:06)
[2019-09-26] MEDS ORDERED: Nursing to Pharmacy Communication SCH (01:00)
[2019-09-26] MEDS: INSULIN ASPART 100 UNITS/ML 3 ML PEN SC SCH ×3 (06:05→18:28)
[2019-09-26 06:18] LABS: Hematocrit (blood only) 38.9 % (42-52); Hemoglobin 12.9 g/dL (14.0-18.0); Mean Corpuscular Hemoglobin 28.9 pg (25-34); Mean Corpuscular Hgb Conc 33.2 g/dL (32-36); Mean Platelet Volume 8.7 fL (7.4-10.4); Platelet Count 237 K/uL (130-400); RDW Coefficient of Variation 13.3 % (11.5-14.5); RDW Standard Deviation 42.6 fL (36.4-46.3); Red Blood Count 4.47 M/uL (4.7-6.1); White Blood Count 8.69 K/uL (4.8-10.8)
[2019-09-26 06:44] LABS: BUN Creatinine Ratio 21.8 (10-20); Calcium 7.6 mg/dl (8.5-10.1); Creatinine Clr Calc Pharmacy 90.4 ml/min; Est GFR (African American) 105.3; Est GFR (Non-African American) 90.9; Potassium 3.6 mmol/L (3.5-5.1)
[2019-09-26] MEDS: lisinopriL 40 MG TAB PO SCH (07:47)
[2019-09-26] MEDS: SIMVASTATIN 40 MG TAB PO SCH (07:47)
[2019-09-26] MEDS: PREGABALIN 75 MG CAP PO SCH ×2 (07:49→22:15)
[2019-09-26] MEDS: LACTATED RINGER'S 1,000 ML IV SCH ×2 (07:50→17:18)
[2019-09-26 10:11] LABS: Estimated Average Glucose 117 mg/dl; Hemoglobin A1C 5.7 % (4.5-5.6)
--- NOTE | 2019-09-26 14:21 | History & Physical Bridge Note ---
Date of Service September 26, 2019 History & Physical Bridge Note I have examined the patient, reviewed the History & Physical and in the interval since the performance of the History & Physical I have noted the following changes of clinical significance: no changes noted
--- NOTE | 2019-09-26 16:40 | Progress Notes ---
DATE: 09/26/2019 SUBJECTIVE: 74-year-old gentleman admitted with a displaced femoral neck fracture. We are just waiting for an open OR room. No interval change in symptoms. He is pretty miserable in pain. OBJECTIVE: VITAL SIGNS: Temperature 36.3. Vital signs are stable. He is hypertensive, likely related to pain. GENERAL: Shows a pleasant elderly male. He is lying in bed. Pretty uncomfortable. EXTREMITIES: Examination of the left leg reveals it to be slightly shortened and externally rotated. Thigh is soft and supple. He is neurologically intact. LABORATORY DATA: Hemoglobin is 12.9. Hematocrit 38.9. Electrolytes are stable. ASSESSMENT: 74-year-old gentleman postoperative admitted with a left displaced femoral neck fracture. PLAN: We talked about treatment options. We are going to proceed with total hip replacement considering his activity level. We are just waiting for an OR room. The risks and benefits have been explained.
[2019-09-26] MEDS ORDERED: BUPIVACAINE 0.5 % 5 MG/1 ML PF 10ML VIAL ONE (19:49)
[2019-09-26] MEDS ORDERED: MIDAZOLAM HCL 1 MG/ML 2ML VIAL ONE (19:57)
[2019-09-26] MEDS ORDERED: PROPOFOL IV EMULSION 10 MG/ML 20 ML VIAL IV ONE (19:57)
[2019-09-26] MEDS ORDERED: BUPIVACAINE 0.5 % 5 MG/1 ML MPF 30ML VIAL ONE (20:14)
[2019-09-26] MEDS ORDERED: EPINEPHrine INJ 1 MG/ML AMP ONE (20:14)
[2019-09-26] MEDS ORDERED: BACITRACIN INJ 50,000 UNIT VIAL ONE (20:14)
[2019-09-26] MEDS ORDERED: ONDANSETRON INJ 2 MG/ML 2 ML VIAL IV PRN ×2 (20:26→23:47)
[2019-09-26] MEDS ORDERED: fentaNYL citrate 100 MCG/2 ML VIAL IV PRN (20:26)
[2019-09-26] MEDS ORDERED: PROMETHAZINE HCL 12.5 MG in SODIUM CHLORIDE 0.9% 50 ML IV PRN (20:26)
[2019-09-26] MEDS ORDERED: HYDROmorphone INJ 2 MG/ML SYR/VIAL IV PRN (20:26)
[2019-09-26] MEDS ORDERED: ePHEDrine sulfate 50 MG/ML AMP IV PRN (20:26)
[2019-09-26] MEDS ORDERED: ATROPINE SULFATE 0.1 MG/ML 10ML SYR IV PRN (20:26)
[2019-09-26] MEDS ORDERED: fentaNYL citrate 100 MCG/2 ML VIAL ONE (20:34)
[2019-09-26] MEDS ORDERED: ROCURONIUM BROMIDE 10 MG/ML 5 ML VIAL IV ONE (21:12)
[2019-09-26] MEDS ORDERED: HYDROmorphone INJ 2 MG/ML SYR/VIAL ONE (21:13)
--- NOTE | 2019-09-26 21:14 | Hospitalist Progress Note ---
Date of Service September 26, 2019 Assessment & Plan (1) Fracture of hip: Closed femoral neck mildly displaced fracture. Medically optimized for surgery at this time. Last ate and drank as per HPI. Revised cardiac risk score 0; 3.9% 30-day risk of , [place], cardiac arrest. Will defer traction given significant amounts of pain in his left foot. Patient is scheduled for surgery later today. Will continue to monitor. Dilaudid 0.5-1mg IV q1h PRN for pain, ondansetron 4 mg IV. Consult orthopedics for operative management - n.p.o. with LR IV @ 125 ml/hr until reviewed by orthopedics. Vitamin D level in a.m. recommend follow-up DEXA scan with his PCP in approximately 4-6 weeks. (2) Left ankle pain: Unclear what is previous surgery entailed but suspect ?tarsal tunnel syndrome (per description from patient) versus tarsal tendon repair (as noted in EHR problem list). Unable to fully clinically assess due to significant hip pain limiting his ankle movements on admission. Patient scheduled for surgical repair.. (3) Diabetes: Unknown HbA1c but he reports under control. Type II diabetic diet once he is about to eat and drink HbA1c with a.m. labs Novolog correction factor only with BSG ACHS. If requiring significant amounts of insulin will add carb coverage and basal insulin. (4) HTN (hypertension): Hold hydrochlorothiazide given current blood pressure. Continue lisinopril 20 mg p.o. every morning. (5) Sleep apnea: CPAP HS @15 cm H2O (6) Peripheral neuropathy: Appears to be more a nerve entrapment from description rather than peripheral neuropathy. Continue pregabalin 75 mg p.o. twice daily (7) DVT prophylaxis: SCDs ordered for unaffected leg Chemical prophylaxis deferred to orthopedics Admission and Anticipated Discharge Date Admission Date: September 25, 2019 Subjective Patient reports he continues to have pain. He is interested in the surgery. Review of Systems Review of Systems: All systems reviewed & are unremarkable except as noted in HPI & below Physical Exam Constitutional: WD/WN, vitals as above well developed Eyes: PERRL, conjunctivae normal, anicteric sclerae ENMT: external ear and nose normal, oropharynx normal Neck: trachea midline, no thyromegaly Respiratory: normal respiratory effort, lungs clear to auscultation Cardiovascular: RRR, no murmur, no edema Gastrointestinal (Abdomen): normal bowel sounds, soft, nontender, no hepatosplenomegaly Musculoskeletal: Head/Neck/Chest: + head abnormal to inspection Neurologic: PERRL, EOMI, accommodation nl, no face palsy, no dysarthria Psychiatric: A+Ox3, euthymic affect Results & Data Results & Data ([facility]) Vital Signs (Past 12 Hours) Vital Signs Temp Pulse Resp BP Pulse Ox 09/26/19 16:00 36.3 C L 93 H 23 189/85 H 91 09/26/19 09:22 168/82 H PG Care Time/CCT Total # of Minutes Spent Total Time Spent with Patient: Total time spent is greater than 50% in coordination of care (as documented) at patient's floor/unit and/or counseling patient: Coding Level of Care Code 49739 Subseq Hosp Care Lvl 3 Diagnoses Fracture of hip S72.002A Encounter type: initial encounter Fracture type: closed Laterality: left Left ankle pain M25.572 Diabetes E11.8 Diabetes mellitus complication status: with unspecified complications Diabetes mellitus termite inspector insulin use: without fpc use Diabetes mellitus type: type 2 HTN (hypertension) I10 Hypertension type: unspecified Sleep apnea G47.30 Peripheral neuropathy G62.9 DVT prophylaxis Z29.9 Time Spent (min) 35 (1) Fracture of hip Encounter type: initial encounter Fracture type: closed Laterality: left Qualified Code(s): S72.002A - Fracture of unspecified part of neck of left femur, initial encounter for closed fracture (2) Diabetes Diabetes mellitus complication status: with unspecified complications Diabetes mellitus termite inspector insulin use: without fpc use Diabetes mellitus type: type 2 Qualified Code(s): E11.8 - Type 2 diabetes mellitus with unspecified complications (3) HTN (hypertension) Hypertension type: unspecified Qualified Code(s): I10 - Essential (primary) hypertension
[2019-09-26] MEDS ORDERED: PHENYLEPHRINE 100MCG/ML 5ML SYR ONE (21:19)
[2019-09-26] MEDS ORDERED: CEFAZOLIN 250 MG/ML 1 GM VIAL ONE (21:19)
[2019-09-26] MEDS ORDERED: ePHEDrine sulfate 50 MG/ML SYR ONE (21:19)
[2019-09-26] MEDS ORDERED: CEFAZOLIN 2000MG 2,000 MG/15 ML SYR IV ONE (21:31)
[2019-09-26] MEDS ORDERED: NEOSTIGMINE METHYLSULFATE 5 MG/5 ML SYR ONE (21:50)
[2019-09-26] MEDS ORDERED: GLYCOPYRROLATE 0.2 MG/ML VIAL ONE (21:50)
[2019-09-26] MEDS: DOCUSATE SODIUM/SENNA 50/8.6MG TAB PO SCH (22:15)
--- NOTE | 2019-09-26 22:54 | Operative Report ---
Post Operative Report Pre & Post Diagnosis Operation Date: 09/26/19 12:30 Pre-Op Diagnosis: Left displaced femoral neck hip fracture Post-Op Diagnosis: Left displaced femoral neck hip fracture I identified the patient and participated in the time-out.: Yes Procedure Operation Date: 09/26/19 12:30 Actual Procedures p Left Total Hip Arthroplasty(Left) - Sourav Bocanegra MD Surgeon Sourav Bocanegra MD Lighter Lilibeth, PAC Estimated Blood Loss 400 Findings Consistent with Post-Op Diagnosis Operative findings revealed comminuted femoral neck fracture was again displacement and hemorrhage and disruption of the capsule posteriorly. Fairly minimal arthritic change. Fluids 1500 cc. Specimens Left femoral head sent for pathology. Drains None. Anesthesia Type General Complications none Disposition Accompanied Patient To Recovery: Yes Disposition: Recovery Room Indications Patient is a 74-year-old very active gentleman who sustained a fall yesterday. He was chopping wood when he stumbled over a longer-term plan on his left hip. He had acute onset of pain. He he was unable to ambulate. Brought to emergency room where x-rays show displaced femoral neck fracture. He was medically admitted and optimized. Patient is very active independent and we elected proceed with total hip arthroplasty due to the nature of the fracture and his age and activity level. Description of Procedure Operative implants consist of: 1. Biomet G7 size 54 mm acetabular shell. 2. 6.5 cancellus acetabular screws x2. 3. [place] hole orthopedic technician. 4. Highly cross-linked polyethylene liner with a 54 mm outer diameter and 36 mm inner diameter. 5. Fe [place] size 14 KLA femoral stem. 5. +8.5/36 mm ceramic articular ball. Patient was taken to the operating room identified and placed on the operating table supine position. All contractors were properly padded. An attempt was made a spinal anesthetic which was unsuccessful. A general anesthetic was implemented. Patient did receive 2 g of IV Ancef. Patient was then placed in the right lateral decubitus position. Axillary roll was placed. A Stulberg hip positioner was used for positioning. Left hip and leg were then prepped and draped in usual sterile fashion. A posterior lateral posterior left hip was then performed a curvilinear incision centered over the greater trochanter. Sharp dissection got through subcutaneous tissue down to level the IT band gluteal fascia. The IT band gluteal fascia then incised longitudinally in line with skin incision. The underlying greater truck bursa was excised. There was a lot of hemorrhage in the posterior aspect of his hip and was difficult to identify the piriformis and external rotators. Therefore the piriformis and external rotators and the hip joint capsule posteriorly were then taken down as a single layer taking great care to protect the sciatic nerve at all times. Hip was internally rotated. Femoral neck osteotomy cut was made just at the base of the fracture but below the fracture site. The femoral neck was removed. The femoral head was removed and sent for pathology. The femur was retracted anteriorly. Attention drawn the acetabulum. The acetabular labrum was excised. The pulmonary fat was excised. Sequential reaming the acetabular was then performed given the size 45 and progressing up to 53. A 54 mm Biomet G7 acetabular shell was then placed in about 40 degrees lateral opening and 20 degrees of anteversion. It was fixed with two 6.5 cancellus acetabular screws. Trial liner was placed. Attention drawn the femur. The proximal femur was entered with a cookie-cutter followed by canal finder. I broached begin the size 8 and progressing up to 14. Got excellent fit of 14. I did not want only 1 a press the issue as far as maximum fit due to concern of his fracture previously and propagation of an undetected fracture line. We had excellent fit. There was stable. We trialed the hip. The soft tissue was still lax I did use a +8.5 head. We had excellent stability in full extension external rotation flexion and flexion to 9 degrees internal rotation over [address] these implants. I felt leg lengths were equal even though soft tissue tension was a little lax. All trial implants were removed. An apex hole eliminator was placed. Highly cross-linked polyethylene liner was placed. A Eddy size 14 KLA femoral stem was impacted in position. +8.5/36 mm ceramic articular ball was placed. Hip was located once again found to be stable. Attention drawn toward closing. The wound was irrigated copious pulsatile lavage solution. I did inject locally with 60 cc of half percent Marcaine with epinephrine. The posterior capsule and external rotators were repaired as a single layer through drill holes in the posterior trochanter with #2 Tycron suture. The IT band gluteal fascia were then closed in 1 PDS suture running fashion with subcutaneous tissue then closed with 2 layers of the deep layer #1 Vicryl suture and subcutaneous tissues with 2-0 Dexon suture in a buried interrupted fashion. Skin was closed with skin olga. Leg was then cleaned dried a sterile dressing composed Xeroform, 4 x 4's, sterile ABD pad and foam tape was applied. Patient transferred to the recovery room in stable condition. The patient tolerated the procedure well and there were no complications. James Mcelroy, my physician's human services assistant, was present for the entire procedure. His assistance was essential to proper positioning, prepping and draping, surgical exposure, performing the technical aspects of the operation, placing the implants, closure of the wound, and placement of a sterile dressing. I attest to the content of the Intraoperative Record and any orders documented therein. Any exceptions are noted below.
--- NOTE | 2019-09-26 23:04 | Anesthesiology Progress Note ---
Date of Service September 26, 2019 Anesthesia Post Procedure Vital Signs Vital Signs: Temp Pulse Pulse Resp BP Pulse Ox Pulse Ox 09/26/19 22:55 98 H 16 165/84 H 96 09/26/19 22:45 97 H 18 163/76 H 100 09/26/19 22:35 36.6 C 101 H 16 162/77 H 98 09/26/19 16:00 36.3 C L 93 H 23 189/85 H 91 09/26/19 09:22 168/82 H 09/26/19 07:25 36.9 C 88 18 184/85 H 93 96 09/26/19 00:35 94 09/25/19 23:10 36.8 C 74 16 144/79 H 94 Pain Intensity Left Leg: Pain Intensity: 8 Transfer of Care Handoff Completed per policy Notes Mental Status: alert / awake / arousable and participated in evaluation Patient Amnestic to Procedure: Yes Nausea / Vomiting: adequately controlled Pain: adequately controlled Airway Patency, RR, SpO2: stable & adequate BP & HR: stable & adequate Hydration State: stable & adequate Anesthetic Complications: no major complications apparent and Pt Satisfied with anesthetic care
[2019-09-26] MEDS ORDERED: HYDROmorphone INJ 0.5 MG/0.5 ML SYR IV PRN (23:47)
[2019-09-26] MEDS ORDERED: OXYCODONE HCL IR 5 MG TAB (IMMEDIATE RELEASE) PO PRN (23:47)
[2019-09-26] MEDS ORDERED: MAGNESIUM HYDROXIDE SUSP 30 ML UDC PO PRN (23:47)
[2019-09-26] MEDS ORDERED: NALOXONE HCL 0.4 MG/1 ML VIAL/CARP IV PRN (23:47)
[2019-09-26] MEDS ORDERED: TAMSULOSIN HCL 0.4 MG CAP PO PRN (23:47)
[2019-09-26] MEDS ORDERED: METOCLOPRAMIDE HCL INJ 5 MG/ML 2 ML VIAL IV PRN (23:47)
[2019-09-26] MEDS ORDERED: bisacodyL 10 MG SUPP PR PRN (23:47)
[2019-09-26] MEDS ORDERED: SODIUM CHLORIDE 0.9% 1000ML 1,000 ML IV SCH (23:47)
[2019-09-27] MEDS ORDERED: PHARMACY GLYCEMIC MGMT CONSULT PRN (01:38)
[2019-09-27] MEDS: LACTATED RINGER'S 1,000 ML IV SCH (02:23)
[2019-09-27] MEDS: INSULIN ASPART 100 UNITS/ML 3 ML PEN SC SCH ×5 (02:24→21:33)
[2019-09-27] MEDS: KETOROLAC TROMETHAMINE 15 MG/ML VIAL IV SCH ×4 (02:28→20:10)
[2019-09-27] MEDS ORDERED: TRANEXAMIC ACID / 0.7% NACL 1,000 MG/100 ML BAG IV SCH (04:44)
[2019-09-27] MEDS: ACETAMINOPHEN 500 MG TAB PO SCH ×3 (05:55→21:32)
[2019-09-27] MEDS: CEFAZOLIN 2000MG 2,000 MG/15 ML SYR IV SCH ×2 (05:55→14:31)
[2019-09-27 06:51] LABS: Basophils # (auto) 0.01 K/uL (0-0.2); Basophils % (auto) 0.1 %; Eosinophils # (auto) 0.04 K/uL (0-0.5); Eosinophils % (auto) 0.3 %; Hematocrit (blood only) 35.8 % (42-52); Immature Granulocytes # (auto) 0.02 K/uL (0.00-0.02); Immature Granulocytes % (auto) 0.2 %; Lymphocytes # (auto) 0.65 K/uL (1.2-3.4); Lymphocytes % (auto) 5.6 %; Mean Corpuscular Hemoglobin 29.1 pg (25-34); Mean Corpuscular Hgb Conc 33.5 g/dL (32-36); Mean Corpuscular Volume 86.7 fL (80-100); Mean Platelet Volume 8.5 fL (7.4-10.4); Monocytes # (auto) 1.41 K/uL (0.11-0.59); Monocytes % (auto) 12.3 %; Neutrophils # (auto) 9.38 K/uL (1.4-6.5); Neutrophils % (auto) 81.5 %; Platelet Count 215 K/uL (130-400); RDW Coefficient of Variation 13.3 % (11.5-14.5); RDW Standard Deviation 42.1 fL (36.4-46.3); Red Blood Count 4.13 M/uL (4.7-6.1); White Blood Count 11.51 K/uL (4.8-10.8)
[2019-09-27 07:16] LABS: BUN Creatinine Ratio 15.9 (10-20); Calcium 8.4 mg/dl (8.5-10.1); Creatinine Clr Calc Pharmacy 90.4 ml/min; Est GFR (African American) 105.3; Est GFR (Non-African American) 90.9; Potassium 4.1 mmol/L (3.5-5.1)
--- NOTE | 2019-09-27 07:28 | XRay Report ---
XR hip 1V LT w pelvis CLINICAL HISTORY: Postoperative evaluation. COMPARISON: Left femur radiographs September 25, 2019. FINDINGS: Alignment of the total left hip arthroplasty is anatomic. Hardware is intact. There are 2 acetabular screws. Skin olga are noted. There are no unexpected radiopaque foreign bodies. IMPRESSION: Expected findings following total left hip arthroplasty. ACT 112: Negative or not required by law. Electronically signed by: Pipo Sandoval M.D. 09/27/2019 7:27 AM
--- NOTE | 2019-09-27 08:29 | Pharmacy Report ---
Pharmacy Glycemic Short Note 2 - Date of Service September 27, 2019 - Glycemic Short BSG Results (Last 24 hours): 09/26/19 09/26/19 09/26/19 12:03 18:04 22:49 Glucose POC Glucose 129 H 115 H 130 H 09/27/19 09/27/19 06:24 08:16 Glucose 128 H POC Glucose 137 H OUTPATIENT ANTIDIABETIC REGIMEN: * metformin 500 mg PO BID * A1c = 5.7% (09/26/19) ASSESSMENT: * 74 yo T2DM admitted with a left displaced femoral neck fracture. Today is POD #1 s/p left CRAIG. * Patient has demonstrated excellent glycemic control without any insulin coverage. * Renal function as baseline and patient tolerating an oral diet, therefore I will resume home dose of metformin. * Continue Novolog for correction only. No carb coverage. PLAN FOR INPATIENT GLYCEMIC CONTROL: * Resume metformin 500 mg PO BID * Basal insulin * none * Bolus insulin * NovoLog per scale ACHS or Q6hrs while NPO * Goal Range: Low 110 mg/dL - High 140 mg/dL * Correction Factor: 25 mg/dL/unit * No carb coverage PLAN FOR DISCHARGE: * A1c of 5.7%. Excellent outpatient glycemic control (current A1c may be too low for patient based on age) * Consider holding metformin if patient reports hypoglycemia at home. If patient denies hypoglycemia it is reasonable to continue.
--- NOTE | 2019-09-27 08:36 | Progress Notes ---
DATE: 09/27/2019 SUBJECTIVE: A 74-year-old gentleman postop day 1 from a left uncemented total hip arthroplasty for fracture. He is doing much better this morning. Pain is much improved. No new complaints. No chest pain or shortness of breath. Not feeling dizzy or lightheaded. OBJECTIVE: VITAL SIGNS: Temperature 37.2. He has had some intermittent tachycardia. Blood pressure is a little bit elevated. GENERAL: Shows a pleasant elderly male. I had to wake him up this morning. He looks pretty comfortable. Certainly much better than he did preoperatively. EXTREMITIES: Examination of the left leg reveals the leg lengths to be equal. Thigh is soft and supple. He can dorsiflex and plantarflex his foot appropriately. He is neurologically intact. LABORATORY DATA: Hemoglobin is 12.0. Hematocrit 35.8. White cell count is slightly elevated at 11.51. Electrolytes are stable. ASSESSMENT: A 74-year-old gentleman postoperative day 1 from a left uncemented total hip arthroplasty done for fracture. This was done late last evening. He is doing pretty well. Pain is improved. He has been a little hypertensive, likely related to pain. He may be a little bit volume depleted from being n.p.o. all yesterday. PLAN: 1. DVT prophylaxis including thigh-high TEDs, SCDs, and aspirin twice a day. 2. PT/OT. He can fully weightbear as tolerated in the left leg. Needs to obey hip precautions. 3. Pain control, doing okay with current pain regimen. We will have to adjust his meds as he mobilizes. 4. Tachycardia. Likely related to some degree of volume depletion and maybe pain. We will have the medicine service manage that. 5. Disposition: He is likely to be able to go home with some home health. He will need at least a day or 2 of therapy here in the hospital. I will need to see him back in 2-3 weeks from surgery. Any orthopedic questions can be directed to me at [phone].
[2019-09-27] MEDS: SIMVASTATIN 40 MG TAB PO SCH (08:47)
[2019-09-27] MEDS: FERROUS GLUCONATE 324 MG TAB PO SCH ×2 (08:47→17:53)
[2019-09-27] MEDS: ASCORBIC ACID 500 MG TAB PO SCH ×2 (08:49→17:53)
[2019-09-27] MEDS: MULTIVITAMIN TAB PO SCH (08:49)
[2019-09-27] MEDS: DOCUSATE SODIUM 100 MG CAP PO SCH ×2 (08:49→20:10)
[2019-09-27] MEDS: lisinopriL 40 MG TAB PO SCH (08:51)
[2019-09-27] MEDS: PREGABALIN 75 MG CAP PO SCH ×2 (08:54→20:14)
[2019-09-27] MEDS: METFORMIN HCL 500 MG TAB PO SCH ×2 (10:30→17:53)
[2019-09-27] MEDS: ALUMINUM/MAGNESIUM SUSP 30 ML UDC PO PRN ×2 (14:25→18:28)
[2019-09-27] MEDS: POLYETHYLENE (MIRALAX) 17 GM PACK PO SCH (14:30)
[2019-09-27] MEDS: DOCUSATE SODIUM/SENNA 50/8.6MG TAB PO SCH (20:10)
[2019-09-27] MEDS ORDERED: SENNA 8.6 MG TAB PO SCH (21:00)
--- NOTE | 2019-09-27 22:38 | Hospitalist Progress Note ---
Date of Service September 27, 2019 Assessment & Plan (1) Fracture of hip: postoperative day 1 from a left uncemented total hip arthroplasty done for fracture will need to stay in hospital for 1 day or 2 for PT. recommend follow-up DEXA scan with his PCP in approximately 4-6 weeks. (2) Left ankle pain: Unclear what is previous surgery entailed but suspect ?tarsal tunnel syndrome (per description from patient) versus tarsal tendon repair (as noted in EHR problem list). Unable to fully clinically assess due to significant hip pain limiting his ankle movements on admission. ] (3) Diabetes: Unknown HbA1c but he reports under control. Type II diabetic diet once he is about to eat and drink HbA1c with a.m. labs Novolog correction factor only with BSG ACHS. If requiring significant amounts of insulin will add carb coverage and basal insulin. (4) HTN (hypertension): Hold hydrochlorothiazide given current blood pressure. Continue lisinopril 20 mg p.o. every morning. (5) Sleep apnea: CPAP HS @15 cm H2O (6) Peripheral neuropathy: Appears to be more a nerve entrapment from description rather than peripheral neuropathy. Continue pregabalin 75 mg p.o. twice daily (7) DVT prophylaxis: SCDs ordered for unaffected leg Chemical prophylaxis deferred to orthopedics Admission and Anticipated Discharge Date Admission Date: September 25, 2019 Subjective 74 yo male reports feeling better today. He has no new symptoms. Pain is better controlled. Review of Systems Review of Systems: All systems reviewed & are unremarkable except as noted in HPI & below Physical Exam Constitutional: WD/WN, vitals as above well developed Eyes: PERRL, conjunctivae normal, anicteric sclerae ENMT: external ear and nose normal, oropharynx normal Neck: trachea midline, no thyromegaly Respiratory: normal respiratory effort, lungs clear to auscultation Cardiovascular: RRR, no murmur, no edema Gastrointestinal (Abdomen): normal bowel sounds, soft, nontender, no hepatosplenomegaly Musculoskeletal: Head/Neck/Chest: + head abnormal to inspection Neurologic: PERRL, EOMI, accommodation nl, no face palsy, no dysarthria Psychiatric: A+Ox3, euthymic affect Results & Data Results & Data ([facility]) Vital Signs (Past 12 Hours) Vital Signs Temp Pulse Pulse Resp BP BP Pulse Ox 09/27/19 22:06 99 H 16 92 09/27/19 19:00 36.6 C 104 H 18 125/67 95 09/27/19 16:05 36.8 C 92 H 18 142/71 H 95 09/27/19 12:00 36.8 C 104 H 16 99/63 L 95 PG Care Time/CCT Total # of Minutes Spent Total Time Spent with Patient: Total time spent is greater than 50% in coordination of care (as documented) at patient's floor/unit and/or counseling patient: Coding Level of Care Code 39645 Subseq Hosp Care Lvl 2 Diagnoses Fracture of hip S72.002A Encounter type: initial encounter Fracture type: closed Laterality: left Left ankle pain M25.572 Diabetes E11.8 Diabetes mellitus complication status: with unspecified complications Diabetes mellitus buttermaker continuous churn insulin use: without fci use Diabetes mellitus type: type 2 HTN (hypertension) I10 Hypertension type: unspecified Sleep apnea G47.30 Peripheral neuropathy G62.9 DVT prophylaxis Z29.9 Time Spent (min) 25 (1) Fracture of hip Encounter type: initial encounter Fracture type: closed Laterality: left Qualified Code(s): S72.002A - Fracture of unspecified part of neck of left femur, initial encounter for closed fracture (2) Diabetes Diabetes mellitus complication status: with unspecified complications Diabetes mellitus buttermaker continuous churn insulin use: without fci use Diabetes mellitus type: type 2 Qualified Code(s): E11.8 - Type 2 diabetes mellitus with unspecified complications (3) HTN (hypertension) Hypertension type: unspecified Qualified Code(s): I10 - Essential (primary) hypertension
[2019-09-28] MEDS: KETOROLAC TROMETHAMINE 15 MG/ML VIAL IV SCH ×3 (01:55→13:17)
[2019-09-28] MEDS: ACETAMINOPHEN 500 MG TAB PO SCH ×2 (05:08→13:18)
[2019-09-28] MEDS: METFORMIN HCL 500 MG TAB PO SCH (07:36)
[2019-09-28] MEDS: DOCUSATE SODIUM 100 MG CAP PO SCH (07:37)
[2019-09-28] MEDS: FERROUS GLUCONATE 324 MG TAB PO SCH (07:37)
[2019-09-28] MEDS: SIMVASTATIN 40 MG TAB PO SCH (07:37)
[2019-09-28] MEDS: ASCORBIC ACID 500 MG TAB PO SCH (07:37)
[2019-09-28] MEDS: MULTIVITAMIN TAB PO SCH (07:38)
[2019-09-28] MEDS: lisinopriL 40 MG TAB PO SCH (07:38)
[2019-09-28] MEDS: INSULIN ASPART 100 UNITS/ML 3 ML PEN SC SCH ×2 (08:38→12:39)
[2019-09-28] MEDS: POLYETHYLENE (MIRALAX) 17 GM PACK PO SCH (08:52)
[2019-09-28] MEDS: PREGABALIN 75 MG CAP PO SCH (08:53)
--- NOTE | 2019-09-28 09:29 | Pharmacy Report ---
Pharmacy Glycemic Short Note 2 - Date of Service September 28, 2019 - Glycemic Short BSG Results (Last 24 hours): 09/27/19 09/27/19 09/27/19 12:21 17:52 20:53 POC Glucose 132 H 135 H 141 H 09/28/19 08:08 POC Glucose 133 H OUTPATIENT ANTIDIABETIC REGIMEN: * metformin 500 mg PO BID * A1c = 5.7% (09/26/19) ASSESSMENT: 09/27: * Excellent glycemic control on home regimen of metformin. BSGs ranged from 128 - 141 mg/dL over the past 24 hours. * Patient required only 1 unit of Novolog yesterday * No changes to current regimen 09/26: * 74 yo T2DM admitted with a left displaced femoral neck fracture. Today is POD #1 s/p left CRAIG. * Patient has demonstrated excellent glycemic control without any insulin coverage. * Renal function as baseline and patient tolerating an oral diet, therefore I will resume home dose of metformin. * Continue Novolog for correction only. No carb coverage. PLAN FOR INPATIENT GLYCEMIC CONTROL: * Metformin 500 mg PO BID * Basal insulin * none * Bolus insulin * NovoLog per scale ACHS or Q6hrs while NPO * Goal Range: Low 110 mg/dL - High 140 mg/dL * Correction Factor: 25 mg/dL/unit * No carb coverage PLAN FOR DISCHARGE: * A1c of 5.7%. Excellent outpatient glycemic control (current A1c may be too low for patient based on age) * Consider holding metformin if patient reports hypoglycemia at home. If patient denies hypoglycemia it is reasonable to continue.
[2019-09-28] MEDS ORDERED: ENOXAPARIN INJ 40 MG/0.4 ML SYR SQ ONE (15:30)
--- NOTE | 2019-09-28 15:54 | Progress Notes ---
DATE: 09/28/2019 SUBJECTIVE: A 74-year-old gentleman postop day 2 from a left total hip replacement done for a displaced femoral neck fracture. He is doing pretty well. Pain is controlled. No chest pain or shortness of breath. Not feeling dizzy or lightheaded. No new complaints. Therapy has gone well. OBJECTIVE: VITAL SIGNS: Temperature 37.1. Vital signs stable. GENERAL: Physical examination shows a pleasant, middle-aged male. He is sitting up in his bedside chair, looks comfortable. EXTREMITIES: Examination of the left hip revealed the leg lengths to be equal. Dressing is clean, dry and intact. His thigh is soft and supple. NEUROLOGICAL: He is neurologically intact. LABORATORY DATA: No new labs. ASSESSMENT: A 74-year-old gentleman postop day 2 from a left total hip replacement done for a femoral neck fracture. He is doing well. Pain is controlled. PLAN: 1. DVT prophylaxis include thigh-high TEDs, SCDs and we would recommend a baby aspirin twice a day for the next 6 weeks. 2. PT/OT. He can weightbear as tolerated. Does need to obey hip precautions. 3. Medical management as per the Medicine Service. 4. Disposition: He is orthopedically okay for discharge any time. He would likely benefit from some home health. I need to see him back 2-3 weeks out from surgery date. Any orthopedic questions can be directed at [phone].
--- NOTE | 2019-10-07 11:38 | Discharge Summary ---
Date of Service September 28, 2019 Admission HPI Per Admitting Provider Ryan Sarmiento is a 74 year old male with hypertension, diabetes, left ankle neuropathic pain, hyperlipidemia who presents to the ER with left hip pain after falling. He reports feeling well and his normal self this morning. He was cutting wood outside and tripped over a log falling from a standing position onto grass. He fell onto his left side. Significant pain in his left hip, foot, ankle since falling. He denies any dizziness, chest pain, shortness of breath prior to falling. Pain initially 10/10, currently 7/10 after x3 morphine 4 mg IV given in the ER. Feels the pain is over his left hip and radiates down his leg to his feet. Constant aching. 10 years ago got nerve pain in his left foot. 2 surgeries to left foot for ?nerve entrapment, . Last ate 6:30am-7am. [place] and coffee. Took all his medication this morning. Principal Diagnosis fracture of hip Discharge Exam Constitutional: WD/WN, vitals as above well developed Eyes: PERRL, conjunctivae normal, anicteric sclerae ENMT: external ear and nose normal, oropharynx normal Neck: trachea midline, no thyromegaly Respiratory: normal respiratory effort, lungs clear to auscultation Cardiovascular: RRR, no murmur, no edema Gastrointestinal (Abdomen): normal bowel sounds, soft, nontender, no hepatosplenomegaly Musculoskeletal: Head/Neck/Chest: + head abnormal to inspection Neurologic: PERRL, EOMI, accommodation nl, no face palsy, no dysarthria Psychiatric: A+Ox3, euthymic affect Discharge Data Allergies Allergy/AdvReac Type Severity Reaction Status Date / Time No Known Allergies Allergy Verified 09/25/19 12:55 Consultations 09/25/19 12:51 ED Decision to Admit Stat 09/25/19 15:53 Consult Orthopedic Surgery Routine 09/27/19 08:00 Consult Case Management - Discharge Planning Routine Procedures Performed Operation Date: 09/26/19 12:30 Actual Procedures p Left Total Hip Arthroplasty(Left) - Sourav Bocanegra MD Hospital Course (1) Fracture of hip: uncemented total hip arthroplasty done for fracture recommend follow-up DEXA scan with his PCP in approximately 4-6 weeks. Followup appointment scheduled ASA BID prophylaxis. (2) Left ankle pain: Unclear what is previous surgery entailed but suspect ?tarsal tunnel syndrome (per description from patient) versus tarsal tendon repair (as noted in EHR problem list). Unable to fully clinically assess due to significant hip pain limiting his ankle movements on admission. ] (3) Diabetes: Unknown HbA1c but he reports under control. will discharge on metformin. (4) HTN (hypertension): Continue lisinopril 20 mg p.o. every morning. (5) Sleep apnea: CPAP HS @15 cm H2O (6) Peripheral neuropathy: Appears to be more a nerve entrapment from description rather than peripheral neuropathy. Continue pregabalin 75 mg p.o. twice daily (7) DVT prophylaxis: SCDs ordered for unaffected leg Chemical prophylaxis deferred to orthopedics Total Time Total Time Spent Total Time Spent (In Minutes): 32 Total Time Includes: Examination of the Patient, Discharge Planning and Medication Reconciliation Discharge Plan Discharge Items Patient Disposition: Home - Home Health Services Reason For Visit: HIP FRACTURE Discharge Diagnosis: Left Hip Replacement for Fracture Condition on Discharge: Good Activity: Per Instructions section Activity Comment: Follow/Obey hip precautions at all times. Weightbearing: Full weightbearing Weightbearing Comment: Weightbear as tolerated obeying hip precautions Non-emergency contact: Primary Care Provider Call non-emergency contact if: you have any medication questions Follow-up/Referrals: Sourav Bocanegra MD [Physician] - (Orthopedic follow-up 2-3 weeks from surgery date.) Jonny Leigh [Primary Care Provider] - Diet: Carb Consistent or DM2 Addtl Attending Provider Instructions: ACTIVITY RECOMMENDATIONS: Physical Therapy: * Aggressive physical therapy is not usually needed. You will learn to take care of yourself safely and walk. * Follow the "Hip Precautions Instructions." * In some cases, the social media content specialist at the hospital will arrange to have a therapist come to your house for the first couple of weeks to help you learn these skills. * You need to practice on your own or with the help of a family member as needed. * When you learn these skills, most of the therapy can be done on your own. Home Exercise: * You were shown a series of exercises in the hospital. Do these exercises three to four times each day including the exercises you were shown in physical therapy. Walking: * Get up and walk several times each day. For the first four weeks, try not to stand or walk for more than one hour at a time. If you do stand or walk for more than one hour, you will not hurt anything, but your leg will likely swell. * As you feel comfortable, you may change from the walker or crutches to a cane and then to independent walking. MEDICATIONS: New Medicine: * You will likely be taking one or more of these medicines: 1. Tramadol - Take, as directed, when you need it, every six hours to control your pain. 2. Iron Sulfate - Take two times each day for the month after surgery to help you replace the blood lost during surgery. 3. Aspirin - Thins your blood to lessen the chance of forming a blood clot. * The most common side effects of pain medicine and iron are nausea and constipation. If nausea or constipation is too much of a problem or if you have any questions about your new medicines or doses, call [facility] at . We will try to help you manage these issues. "VERY IMPORTANT TO READ AND REVIEW" Pain: * The immediate post-operative period after hip replacement surgery is often quite painful. * You are given a prescription for pain medicine. You should take it, as directed, when you need it, especially before physical therapy and before going to bed. Pain that interferes with sleep is very common and can last several months. * You will likely need pain medicine for the first two to four weeks. It will not stop all of the pain. The pain will lessen and as you feel better, you may change to milder pain medicine such as Tylenol. * The most common side effects of pain medicine are nausea and constipation, so don't take more than you need. SPECIAL CARE INSTRUCTIONS: TEDs/Elastic Stockings: * The white elastic stockings help limit swelling and prevent blood clots from forming in your legs. The more you wear them, the more they work. * Wear them for six weeks. Prevention of Infection: * Take antibiotics one hour before any dental cleaning, dental work, urological procedure, gastrointestinal procedure or any invasive surgery in order to prevent your new joint from getting infected. * You may get the antibiotics from the doctor performing the procedure or you may call our office at before and we will call in a prescription to the pharmacy of your choice. Things to Watch For: * Drainage from the incision site that occurs more than one week after your surgery. * Severely increased leg pain or swelling. * Increased redness at the incision site. * Fever above 102 degrees Fahrenheit. * Unusual chest pain or shortness of breath. * Unusual pain or burning with urination. Call [facility] at with any of the above problems or if you have any questions about your medicines or recovery. FOLLOW UP VISIT: Make an appointment to see your doctor for approximately two weeks after surgery for a progress check and staple removal by calling the office at . Pending Studies at Discharge: No Stand-Alone Forms: [facility] [employer], Smoking Cessation Medications and DC Order Prescriptions: New acetaminophen 325 mg Tablet 650 mg PO Q6H PRNQty: 0 RF: 0 docusate sodium 100 mg Capsule 100 mg PO BID Qty: 60 RF: 0 aspirin 81 mg tablet,delayed release (DR/EC) 81 mg PO BID Qty: 90 RF: 0 Continued metformin 500 mg tablet 500 mg PO BID RF: 0 simvastatin 40 mg tablet 40 mg PO QAM RF: 0 lisinopril 40 mg tablet 40 mg PO QAM RF: 0 pregabalin 75 mg capsule 75 mg PO BID RF: 0 hydrochlorothiazide 12.5 mg tablet 12.5 mg PO QAM RF: 0 No Action ondansetron HCl [Zofran] 4 mg tablet 4 mg PO Q8H PRN (Reason: nausea and vomiting) Qty: 30 RF: 0 Discharge Orders: Discharge Order (Routine); Ordered 09/28/19 Ordered By: Isra Ferraro/Other Patient Handouts: DVT Post Op Prevention Admission Data Admit Date/Time: 09/25/19 13:38 Attending Provider: Isra Cole Admit Provider: Vladimir Horan Primary Care Provider: Jonny Leigh Other Providers: Vladimir Horan ; Avery Gurrola ; [facility] Other Interventions: Discharge Summary Assessment (RN) Last Done: 09/28/19 16:46 Coding Level of Care Code D/C Day Management >30 mins Diagnoses Fracture of hip S72.002A Encounter type: initial encounter Fracture type: closed Laterality: left Left ankle pain M25.572 Diabetes E11.8 Diabetes mellitus complication status: with unspecified complications Diabetes mellitus manager terminal insulin use: without manager terminal use Diabetes mellitus type: type 2 HTN (hypertension) I10 Hypertension type: unspecified Sleep apnea G47.30 Peripheral neuropathy G62.9 DVT prophylaxis Z29.9 Time Spent (min) 32
== END 2019-09-28 17:11 | disposition home health service (06) | DRG 470 ==
LOC: ED 10:59 → SUATTDRO 13:38 → 3N 13:38